=== PATIENT | female | born 1960 | race Caucasian/White ===

== ENCOUNTER 2020-07-10 00:53 | Outpatient (CLI) | payer BC, SELFPAY ==
--- NOTE | 2020-07-10 | DI.MAMMO_ITS ---
EXAM: MAMMO SCREENING CLINICAL HISTORY: SCREENING, Z12.31 TECHNIQUE: Bilateral full field digital CC and MLO mammographic images were obtained with 3D tomosyn thesis and utilizing computer aided detection (CAD). COMPARISON: Available for comparison. FINDINGS: Masses/Architectural Distortion: The asymmetric densities in the central and medial right breast on t he craniocaudad view appears stable. There is an asymmetric density in the medial left breast on the CC view which is more prominent compared to the prior examination. Microcalcifications: No suspicious pleomorphic-type are seen. Skin Thickening/Nipple Retraction: None. IMPRESSION: 1. Asymmetric density in the medial aspect of the left breast on the CC view. 2. Additional views of the left breast are requested for further evaluation. Ultrasound may be indic ated at that time. BI-RADS Category 0 - Assessment Incomplete: Need additional imaging evaluation Breast Density - Category C - Heterogeneously dense Breast density category C or D implies that the patient has dense breast tissue. Dense breast tissue is very common and is not abnormal but dense breast tissue can make it harder to find cancer on a ma mmogram. Also, dense breast tissue may increase their breast cancer risk. This information about the result of the mammogram report was provided to the patient to raise their awareness. Use this report when you speak with the patient about their risks for breast cancer, which includes their family hist ory. At that time, you may recommend for more screening tests (Ultrasound or MRI) as they might be us eful based on their risk. A negative radiographic report should not delay biopsy if a dominant or clinically suspicious mass is present. Up to ten percent of cancers are not identified on mammography. A negative report may reinforce clinical impression. Adenosis and dense breasts may obscure an underlying neoplasm. False positive reports average 6 to 10%. Patient will receive a letter notifying them of these results.
== END 2020-07-10 01:13 ==
PROVIDERS: PCP Nurse Practitioner Family; Visit Provider Nurse Practitioner Family
DX: Z12.31 Encounter for screening mammogram for malignant neoplasm of breast (principal); R92.8 Other abnormal and inconclusive findings on diagnostic imaging of breast
CPT/HCPCS: 77063; 77067

== ENCOUNTER 2020-07-20 02:34 | Outpatient (CLI) | payer BC, SELFPAY ==
--- NOTE | 2020-07-20 | DI.US_ITS ---
EXAM: US BREAST LT LIMITED CLINICAL HISTORY: F/U MAMMO, ASYMMETRIC DENSITIES LT BREAST MORE PROMINENT. TECHNIQUE: Limited ultrasound of the left breast was performed. COMPARISON: Prior mammogram performed 07/10/2020 was reviewed FINDINGS: No evidence of solid or significant cystic lesion in the area of concern in the left breast. IMPRESSION: Negative left breast ultrasound. Appropriate follow-up is to keep this patient yearly mammogram schedule, with earlier imaging if a se lf detected breast change is noted. BI-RADS Category 2 - Benign Findings Breast Density - Category B - Scattered areas of fibroglandular density Breast density Category C or D implies that the patient has dense breast tissue. Dense breast tissue can make it harder to find cancer on a mammogram. Dense breast tissue is also associated with an incr eased risk of breast cancer. This information about the result of the mammogram report was provided to the patient to raise their awareness. Use this report when you speak with the patient about their risks for breast cancer, which includes their family history. At that time, you may recommend additional screening tests (Ultrasoun d or MRI) as these tests may add significant information. A negative radiographic report should not delay biopsy if a dominant or clinically suspicious mass is present. Up to ten percent of cancers are not identified on mammography. A negative report may reinforce clinical impression. Adenosis and dense breasts may obscure an underlying neoplasm. False positive reports average 6 to 10%. Patient will receive a letter notifying them of these results.
--- NOTE | 2020-07-20 14:22 | DI.MAMMO_ITS ---
EXAM: MG MAMMO SCREEN CALL BACK UNI CLINICAL HISTORY: F/U MAMMO, ASYMMETRIC DENSITY LT BREAST MORE PROMINENT. TECHNIQUE: Spot compression 3D view CC area of concern left breath COMPARISON: Prior mammograms were reviewed, most recent being 07/10/2020 FINDINGS: The additional of mammographic view renders this area less concerning. Please note that left breast ultrasound performed today following this mammogram was also negative. IMPRESSION: No radiographic evidence of malignancy in left breast. Left breast ultrasound also negative. See separate ultrasound report BI-RADS Category 2 - Benign Findings Breast Density - Category B - Scattered areas of fibroglandular density Breast density Category C or D implies that the patient has dense breast tissue. Dense breast tissue can make it harder to find cancer on a mammogram. Dense breast tissue is also associated with an incr eased risk of breast cancer. This information about the result of the mammogram report was provided to the patient to raise their awareness. Use this report when you speak with the patient about their risks for breast cancer, which includes their family history. At that time, you may recommend additional screening tests (Ultrasoun d or MRI) as these tests may add significant information. A negative radiographic report should not delay biopsy if a dominant or clinically suspicious mass is present. Up to ten percent of cancers are not identified on mammography. A negative report may reinforce clinical impression. Adenosis and dense breasts may obscure an underlying neoplasm. False positive reports average 6 to 10%. Patient will receive a letter notifying them of these results.
== END 2020-07-20 02:54 ==
PROVIDERS: PCP Nurse Practitioner Family; Visit Provider Nurse Practitioner Family
DX: R92.8 Other abnormal and inconclusive findings on diagnostic imaging of breast (principal)
CPT/HCPCS: 76642; 77063; 77067

== ENCOUNTER 2020-09-05 12:49 | Outpatient (REF) | payer BC, SELFPAY ==
--- NOTE | 2020-09-05 12:00 | PAPFT_PTH ---
PATIENT: Danielle Coronado LOC: [facility] U#:[id number] AGE/SX: 59/F ROOM: RE09/05/[address]: Citlali Calles : 1960 BED: DIS: 09/05/2020 SPEC #: [id number] RECD: 09/06/20 12:43 STATUS: CECILIA REAnni #: [id number] RADHA: 09/05/20 12:[address]: Citlali Calles DEPT: [facility], [facility] Cytology RECD BY: Lanette Briggs Tissues: 1 - CX/ENDOCX FOR PAP SMEARS Procedures: PAP THIN PREP/UVM Screening Comments: [id number]
== END 2020-09-05 12:50 | disposition home or self-care (01) ==
LOC: NCHCN 12:49
PROVIDERS: PCP Nurse Practitioner Family; Visit Provider Nurse Practitioner Family
DX: Z12.4 Encounter for screening for malignant neoplasm of cervix (principal); Z00.00 Encounter for general adult medical examination without abnormal findings; Z01.419 Encounter for gynecological examination (general) (routine) without abnormal findings
CPT/HCPCS: 88142

== ENCOUNTER 2021-04-16 03:25 | Outpatient (CLI) | payer BC, SELFPAY ==
[2021-04-16 11:32] LABS: Source Nasal/Nares
[2021-04-16 13:46] LABS: COVID-19 PCR Negative (Negative)
== END 2021-04-16 03:26 | disposition home or self-care (01) ==
LOC: LBO 03:25
PROVIDERS: PCP Nurse Practitioner Family; Visit Provider Podiatrist
DX: Z20.822 Contact with and (suspected) exposure to COVID-19 (principal); Z01.818 Encounter for other preprocedural examination
CPT/HCPCS: 87635

== ENCOUNTER 2021-04-19 07:55 | Day surgery (SDC) | payer BC, SELFPAY ==
--- NOTE | 2021-04-19 07:07 | W.PM.HP.N ---
Date of service: 04/19/21 Time of Service: 07:07 History of Present Illness History of Present Illness Chief Complaint: Painful left hallux limitus and second digit hammertoe deformities Narrative: 60-year-old female with increasing pain associated with derangement of the left first MPJ with advanced degenerative arthrosis of the joint and contracture of the left second toe. These deformities are causing difficulty in shoe gear pain with ambulation and have been progressing. Nonoperative treatments including alternate shoe gear have failed to provide sufficient relief of symptoms. She is opting for a surgical solution to this debilitating problem. [facility] Medical History Depression Finger pain, left IBS (irritable bowel syndrome) Vaginal dryness Social History Smoking/Tobacco Use Status: Never Smoking risk assessment performed?: Yes Alcohol Intake: current Alcohol Intake frequency: 0-2 drinks per day Alcohol type: wine Drug use: Never Substance use type: does not use Do you feel safe at home: Yes Do you feel safe in your relationship?: Yes Meds Allergies and Home Medications Allergies Allergy/AdvReac Type Severity Reaction Status Date / Time Sulfa (Sulfonamide Allergy Severe Other (See Unverified 04/17/21 12:37 Antibiotics) Comment) Home Medications Medication Instructions Recorded Confirmed Type Unknown [No Known Home Meds] 04/17/21 04/17/21 History Exam Narrative Exam Narrative: 60-year-old female, pleasant with painful left first MPJ and second digit hammertoe. Head is normocephalic Eyes PERRLA Hearing is adequate Uvula looks midline airway looks assessable Heart had regular rate and rhythm I detected no gallops rubs or murmurs Lung begum are clear Abdomen was soft, bowel sounds appreciated, nontender Peripheral pulses easily palpable at the ankle 2/4 no edema Muscle groups are 5 out of 5 bilaterally Skeletal exam is remarkable for crepitance of the first MPJ with range of motion. Periarticular exostoses are noted. Pain is easily palpable around the joint with gentle palpation. Semiflexible left second hammertoe is appreciated with irritation noted over the PIPJ. Neurologically she appears grossly intact Impressions: Advanced degenerative arthrosis, hallux limitus, first MPJ left foot Hammertoe deformity left second digit Plan: Lynn is being brought to the OR for surgical repair of the left first MPJ via joint resectional arthroplasty and an arthroplasty of the left second toe. Potential risk and complications of surgery were discussed including the potential for pain, scarring, infection, nerve injury, shortening of the digit, floating of the digit, the potential need for revisional procedures if postoperative pain persists. All questions have been answered in detail. Informed consent has been obtained.
[2021-04-19 08:05] VITALS: BP 139/77; PULSE 65; RESP 16; TEMP 36.2; O2SAT 98
[2021-04-19] MEDS: Lactated Ringers 1,000 ML 80 ML IV (08:40)
--- NOTE | 2021-04-19 09:58 | W.ANESPRE ---
General Info Date of Service Date Performed: 04/19/21 Height: 5 ft 2 in Weight: 59.2 kg Body Mass Index (BMI): 23.8 Surgical Procedure: Operation Date: 04/19/21 10:10 Proposed Procedures Side Surgeon p Bunionectomy LT FOOT Left Oracio Young DPM Meds Allergies and Home Medications Allergies Allergy/AdvReac Type Severity Reaction Status Date / Time Sulfa (Sulfonamide Allergy Severe Other (See Unverified 04/17/21 12:37 Antibiotics) Comment) Home Medication Medication Instructions Recorded paroxetine HCl 20 mg PO DAILY 04/19/21 Current Visit Medications: Current Medications Generic Name Dose Route Start Last Admin Trade Name Freq PRN Reason Stop Dose Admin Sodium Chloride 500 mls @ 0 mls/hr 04/19/21 06:00 Saline 500ml Bag IV PRN PRN As Directed Cefazolin Sodium/Dextrose 1 gm in 50 mls @ 100 mls/hr 04/19/21 06:00 Ancef Duplex IVPB PREOP MAURICE Ringer's Solution 1,000 mls @ 80 mls/hr 04/19/21 06:00 04/19/21 08:40 IV 05/18/21 23:59 80 mls/hr INFUSION MAURICE Administration IV Miscellaneous Supplies 1 each 04/19/21 06:00 Iv Access IV DIRECTED MAURICE IV Miscellaneous Supplies 1 each 04/19/21 06:00 Iv Access IV 05/18/21 23:59 DIRECTED MAURICE Povidone Iodine 0 ml 04/19/21 06:00 Povidone-Iodine Soln. 118 Ml Btl TP DIRECTED MAURICE Sodium Chloride 0 ml 04/19/21 06:00 Normal Saline Flush 10 Ml Syr IVP PRN PRN Sodium Chloride 0 ml 04/19/21 06:00 Normal Saline Flush 10 Ml Syr IV 05/18/21 23:59 PRN PRN Sodium Chloride 0 ml 04/19/21 06:00 Normal Saline 10 Ml Vial IJ 05/18/21 23:59 DIRECTED PRN Sterile Water 0 ml 04/19/21 06:00 Water,Injection,Sterile 10 Ml Vial IJ 05/18/21 23:59 DIRECTED PRN PFSH Medical History Medical History Depression Finger pain, left IBS (irritable bowel syndrome) Vaginal dryness Tobacco Smoking/Tobacco Use Status: Never Alcohol Alcohol Intake: current Alcohol intake frequency: 0-2 drinks per day Alcohol type: wine Substance Use Substance use: Never Substance use type: does not use Vital Signs and Lab Results Vital Signs Most Recent Vital Signs in EMR: Most Recent Vital Signs Temp Pulse Resp BP Pulse Ox 36.2 C L 65 16 139/77 98 04/19/21 08:05 04/19/21 08:05 04/19/21 08:05 04/19/21 08:05 04/19/21 08:05 Lab Results Blood Type / Crossmatch: No Data to Display Complete Blood Count: No Data to Display Complete Metabolic Panel: No Data to Display Liver Function Panel: No Data to Display Coagulation Panel: No Data to Display Cardiac Panel: No Data to Display Arterial Blood Gas: No Data to Display Venous Blood Gas: No Data to Display Pancreas Panel: No Data to Display Thyroid Panel: No Data to Display Infectious Disease: Coronavirus (COVID-19)(PCR) Negative (Negative) 04/16/21 10:10 04/16/21 Coronavirus 2019 Source Nasal/Nares 04/16/21 10:10 04/16/21 Blood Cultures: No Data to Display Toxicology Panel: No Data to Display Anesthesia Assessment and Plan Anesthesia History Personal History: No History of Anesthesia Complications Family History: No Family History of Anesthesia Complications Exercise Tolerance Exercise Tolerance: Metabolic Equivalents>4 Pertinent Negatives Pertinent Negatives: No Symptoms of GERD, No Major Cardiovascular Symptoms or Complaints, No Major Pulmonary Symptoms or Complaints and No History of CVA/TIA Cardiac & Pulmonary Exam Cardiac Exam: Normal S1/S2 Heart Sounds Pulmonary Exam: Clear Bilateral Breath Sounds Airway Exam Known Difficult Airway: No Mallampati Class: 2 Mouth Opening: Normal (> 3cm) Thyromental Distance: Greater than 3 cm Neck Range of Motion: Full ROM Neck Circumference: Normal Teeth Condition: Normal Dentition Airway Comments: Bottom back chipped tooth #21 chipped ASA Classification ASA Score: ASA 2 Emergency Case?: No NPO Status NPO Status: NPO Clears >2 hours, Solids >8 hours Anesthesia Plan Resuscitation Status: Full Code Anesthesia Technique: General Anesthesia Airway Planned: Natural Airway Monitors Used: Standard Monitors
[2021-04-19 10:00] VITALS: BMI 23.8
[2021-04-19] MEDS: ceFAZolin 1 GM/50 ML BAG IVPB (10:23)
[2021-04-19] MEDS: Bupivacaine 0.5% Pres-Free 30 ML VIAL (10:33)
[2021-04-19] MEDS: Lidocaine 1% Multi-Dose 50 ML VIAL (10:33)
[2021-04-19] MEDS: Dexamethasone 4 MG/ML VIAL (11:28)
--- NOTE | 2021-04-19 11:53 | W.PM.DSUDISC ---
Discharge Plan Disposition Patient Disposition: HOME Condition: Good Discharge Details Reason For Visit: Bunionectomy, arthroplasty second toe left foot Attending Provider: Oracio Young Primary Care Provider: Citlali Calles Home Meds and New Rx's Prescriptions: New ibuprofen 600 mg tablet 600 mg PO Q6H PRN (Reason: pain and inflammation) Qty: 60 RF: 0 oxycodone-acetaminophen 5-325 mg tablet 1 tab PO Q6H PRN (Reason: pain) Qty: 9 RF: 0 Continued paroxetine HCl 20 mg Tablet 20 mg PO DAILY RF: 0 Discharge Instructions Activity:: Elevate Remove Dressings/Wound Care:: Do Not Remove Shower/Bathe:: Cover Diet:: Normal Diet Discharge Orders Discharge Orders: Discharge Order (Routine); Ordered 04/19/21 Ordered By: Oracio Young DS: Diagnosis Discharge Diagnosis (1) Hallux limitus of left foot: Status: Acute
[2021-04-19 11:55] VITALS: BP 126/96; PULSE 66; RESP 16; TEMP 36; O2SAT 94
--- NOTE | 2021-04-19 11:57 | ROE_ITS ---
Date of service: 04/19/21 Time of Service: 11:57 Operative Note Operative Note DATE OF PROCEDURE: 04/19/21 PRE-OP DIAGNOSIS: End-stage arthrosis first MPJ left foot, hammertoe second digit POST-OP DIAGNOSIS: same PROCEDURE: Conde type bunionectomy with 0.062 K wire fixation; arthroplasty PIPJ second digit with 0.045 K wire SURGEON: Oracio Young ANESTHESIA TYPE: General:No Airway Refer to Anesthesia Record ESTIMATED BLOOD LOSS: 0 PATHOLOGY: none sent TOURNIQUET TIME: 59 COMPLICATIONS: None Patient was transported to: same day Patient's condition: stable Indications: 60-year-old female with increasing pain associated with end-stage degenerative arthritis with hallux limitus affecting the left great toe and contracture of the second digit resulting in hammertoe deformity. Pain is experienced in shoe gear and interferes with daily ambulation. Nonoperative treatments have failed to provide significant relief of symptoms. Risk and complications of surgery have been disclosed including the potential for pain, scarring, infection, wound dehiscence, shortening and floating of the first and second toes, ongoing discomfort potentially requiring revisional procedures. No promises have been made to the final outcome of surgery. Informed consent has been obtained. Procedure Description: Danielle was brought to the operative suite placed in the supine position with the left foot was prepped and draped in the usual sterile podiatric fashion. Timeout was performed for safe surgery. Anesthesia being achieved the left foot was exsanguinated well-padded ankle tourniquet inflated 250 mmHg. Attention was directed to the first MPJ where a 5 cm dorsal incision was made medial and parallel to the EHL tendon. Incision was deepened in controlled depth fashion hemostasis being acquired by electrocautery. Dissection was carried down to the joint capsule. A midline longitudinal incision was made over the first MPJ. The capsule was retracted medially and laterally. It was immediately evident that the joint was in it end-stage of breakdown. There was complete loss of articular cartilage with flattening, squaring of the joint surfaces and complete erosion of the articular cartilage through the joint surface. With power instrumentation approximately 1 cm of bone was resected from the base of the proximal phalanx. The medial lateral and dorsal exostosis from the first metatarsal head was then resected with power instrumentation. All rough and bony edges were rasped smooth. Excellent resection of bone was identified and the hallux was sitting in a rectus position. Fixation was achieved through retrograde fashion with a 0.062 K wire. The joint capsule was repaired after copious irrigation with simple interrupted suture 3-0 Vicryl. The subcutaneous layer was brought together with simple interrupted suture of 4-0 Vicryl. The skin was then coapted with continuous running suture of 4-0 Monocryl. Mastisol and half-inch Steri-Strips were then applied after the second toe was repaired. Attention was now directed to the second toe with 2 converging semielliptical incisions were placed over the PIPJ. Skin wedge was removed. A transverse tenotomy capsulotomy was performed at the PIPJ level with a #15 scalpel and the medial lateral collaterals were released. The head of the proximal phalanx was inspected and there were 2 areas of through and through erosion along the plantar central and plantar medial aspect of the joint surface. With double- action bone cutting forceps the head of the proximal phalanx was resected at its surgical neck. All rough and bony edges were rasped smooth. The second toe was sitting in a rectus position. Fixation was achieved with a 0.045 K wire in retrograde fashion. The extensor tendon was shortened slightly and repaired end-to-end with simple interrupted suture 3-0 Vicryl. The skin was then closed with simple interrupted suture of 4-0 nylon. 4 mg of dexamethasone phosphate was infused deeply into the first MPJ wound. Xeroform gauze fluff compression dressings were applied. Tourniquet was r eleased 59 minutes with vascularity returning immediately to all toes. Sharp and sponge counts were correct. Danielle left the OR with vital signs stable vascular status intact she will be followed by myself in the office next week. Dictated with Sherron naturally speaking. Document not reviewed for accuracy.
--- NOTE | 2021-04-19 12:04 | W.ANESPOSTOP ---
Postoperative Evaluation Date, Time and Location Date Performed: 04/19/21 Time Performed: 12:04 Patient Location: Day Surgery Unit Vital Signs Most Recent Imported Vital Signs: Most Recent Vital Signs Temp Pulse Resp BP Pulse Ox 36.2 C L 65 16 139/77 98 04/19/21 08:05 04/19/21 08:05 04/19/21 08:05 04/19/21 08:05 04/19/21 08:05 Most Recent Manually Entered Vital Signs: Adult Blood Pressure: 120/96 Heart Rate: 66 Respirations: 16 Oxygen Saturation (%): 94 Temperature (C): 36.3 C Pain Score (0-10 Scale): 0 Assessment Mental Status: Awake (Alert & Oriented to Patient Baseline) Airway and Respiratory Function: Patent airway with normal (patient baseline) respiratory exam Cardiovascular Function: Hemodynamically Stable Hydration Status: Adequately Hydrated Nausea & Vomiting: No Nausea or Vomiting Pain: Pt. Denies Any Pain Peripheral Nerve Block: Patient did not receive a nerve block
[2021-04-19 12:05] VITALS: BP 120/96; PULSE 66; RESP 16; TEMPC 36.3; O2SAT 94
[2021-04-19 12:20] VITALS: BP 130/86; PULSE 58; RESP 16; TEMP 36.3; O2SAT 95
== END 2021-04-19 13:05 | disposition home or self-care (01) ==
PROVIDERS: PCP Nurse Practitioner Family; Visit Provider Podiatrist
PROC: (CPT 28292; principal; 2021-04-19 10:00)
DX: M19.072 Primary osteoarthritis, left ankle and foot (principal); M20.5X2 Other deformities of toe(s) (acquired), left foot; M20.42 Other hammer toe(s) (acquired), left foot
CPT/HCPCS: 28292; 28285; J0131; J0690; J1100; J1885; J2001; J2250; J2405

== ENCOUNTER 2021-07-03 01:10 | Outpatient (CLI) | payer BC, SELFPAY ==
--- NOTE | 2021-07-03 | DI.MRI_ITS ---
Exam(s) MR CERVICAL SPINE WO EXAM: MR CERVICAL SPINE WO CLINICAL HISTORY: CERVICAL DISC DISORDER WITH RADICULOPATHY, PAIN,M50.12 TECHNIQUE: Multiplanar multisequence MRI of the cervical spine was performed without intravenous con trast. COMPARISON: No plain films of the cervical spine available time this MRI interpretation. FINDINGS: CERVICOMEDULLARY JUNCTION: Intact with no evidence of cerebellar tonsillar ectopia. No obvious abnor mality of the odontoid process. No evidence of Chiari 1 malformation. CERVICAL SPINAL CORD: There is no abnormal signal in the cervical spinal cord and no evidence of foca l cord atrophy nor focal cord swelling. OSSEOUS:There are no cervical fractures evident. No significant osseous lesions in the cervical vert ebrae. However, there is abnormal straightening the cervical curvature. INDIVIDUAL LEVELS: C2-3: No disc herniation nor central canal stenosis. No foraminal stenosis. No facet arthropathy. C3-4: Moderate disc space narrowing. There is relatively symmetrical annular bulging. No significan t spinal canal stenosis. Mild bilateral facet arthropathy. Noprominent foraminal stenosis. C4-5: Moderate disc space narrowing. Some disc bulging which is more prominent on the right side whe re there is a disc-osteophyte complex. Central canal dimensions are lower normal.There is mild facet arthropathy on the right side. No significant foraminal stenosis on the right. On the left side th ere is more severe facet arthropathy and an element of mild left-sided foraminal stenosis is evident. C5-6: This level exhibits advanced chronic disc space narrowing and anterior osteophytes. Posteriorl y there are bilateral disc-osteophyte complexes. There is also a central posterior disc herniation s uperimposed upon annular bulging, this compressing the cervical cord and the AP dimension measurement of the canal at this level is 6 millimeters. There are mild degenerative changes in the facet joint s. Mild bilateral foraminal stenosis. C6-7: This level also exhibits advanced chronic disc space narrowing. Annular bulging centrally and right side with compression of the spinal cord and AP canal measurement also 6 millimeters (central c anal stenosis). Mild-moderate bilateral facet arthropathy. Mild bilateral foraminal stenosis. C7-T1: No disc herniation nor central canal stenosis. Moderate facet degenerative changes.No foramina l stenosis. IMPRESSION: 1. Multilevel findings as described individually above, with most significant findings being at C5-6 and C6-7 levels where there is also significant spinal canal stenosis. There is no abnormal spinal c ord signal at these levels. 2. Multilevel asymmetric facet arthropathy. Mild multilevel asymmetric foraminal stenosis. 3. There is abnormal straightening of the cervical curvature, most probably related to chronic muscle spasm. DATA REPOSITORY:
== END 2021-07-03 01:30 ==
PROVIDERS: PCP Nurse Practitioner Family; Visit Provider Chiropractor
DX: M50.122 Cervical disc disorder at C5-C6 level with radiculopathy; M50.123 Cervical disc disorder at C6-C7 level with radiculopathy; M48.02 Spinal stenosis, cervical region; R93.7 Abnormal findings on diagnostic imaging of other parts of musculoskeletal system
CPT/HCPCS: 72141

== ENCOUNTER 2021-09-10 20:39 | Outpatient (REF) | payer BC, SELFPAY ==
[2021-09-10 21:02] LABS: ALT 22 U/L (14-59); AST 24 U/L (15-37); Albumin 4.1 g/dL (3.4-5.0); Alkaline Phosphatase 121 U/L (46-116); Anion Gap 6.5 mmol/L (3-11); BUN 18 mg/dL (7-18); Bilirubin, Total 0.3 mg/dL (0.2-1.0); CO2 30.5 mmol/L (21.0-32.0); CREATININE 0.8 mg/dL (0.55-1.02); Chloride 101 mmol/L (98-107); Glucose 88 mg/dL (74-106); Potassium 3.9 mmol/L (3.5-5.1); Sodium 138 mmol/L (136-145); Total Protein 7.4 g/dL (6.4-8.2)
[2021-09-10 21:05] LABS: HCT 42.5 % (36.0-46.0); HGB 13.5 g/dL (11.2-15.7); MCH 30.6 pg (27.0-33.0); MCHC 31.8 % (32.0-36.0); MCV 96.4 fL (80-95); MPV 10.4 fL (8.0-11.0); Platelet Count 286 10^3/uL (130-400); RBC 4.41 10^6/uL (3.93-5.22); RDW 12.5 % (11.7-14.6); RDW-SD 44.8 fL; WBC 5.89 10^3/uL (4.4-10.8)
== END 2021-09-10 20:40 | disposition home or self-care (01) ==
LOC: NCHCN 20:39
PROVIDERS: PCP Nurse Practitioner Family; Visit Provider Nurse Practitioner Family
DX: Z00.00 Encounter for general adult medical examination without abnormal findings (principal)
CPT/HCPCS: 80053; 85027

== ENCOUNTER 2021-10-30 00:12 | Outpatient (CLI) | payer BC, SELFPAY ==
--- NOTE | 2021-10-30 | DI.MAMMO_ITS ---
Exam(s) MAMMO SCREENING EXAM: MAMMO SCREENING CLINICAL HISTORY: SCREENING FOR BREAST CANCER Z12.39 TECHNIQUE: Mammograms were interpreted according to the usual protocol including computer analysis w [employer] CAD system, tomosynthesis and C-view imaging. COMPARISON: 2018 through 2020 FINDINGS: The breasts are composed of scattered fibroglandular densities, Breast Density category B. No suspicious masses or suspicious microcalcifications are seen. No skin thickening or abnormal axillary lymph nodes are seen. There has been no significant change from prior exams. IMPRESSION: BI-RADS Category 1, Negative mammogram Yearly screening mammography is recommended. Breast Density - Category B, scattered fibroglandular densities. A negative radiographic report should not delay biopsy if a dominant or clinically suspicious mass is present. Up to ten percent of cancers are not identified on mammography. A negative report may reinforce clinical impression. Adenosis and dense breasts may obscure an underlying neoplasm. False positive reports average 6 to 10%. Patient will receive a letter notifying them of these results.
== END 2021-10-30 00:32 ==
PROVIDERS: PCP Nurse Practitioner Family; Visit Provider Nurse Practitioner Family
DX: Z12.31 Encounter for screening mammogram for malignant neoplasm of breast (principal)
CPT/HCPCS: 77063; 77067

== ENCOUNTER 2022-10-30 14:41 | Outpatient (REF) | payer BC, SELFPAY ==
[2022-10-30 14:57] LABS: HCT 40.6 % (36.0-46.0); HGB 13.3 g/dL (11.2-15.7); MCH 30.6 pg (27.0-33.0); MCHC 32.8 % (32.0-36.0); MCV 93 fL (80-95); MPV 10.6 fL (8.0-11.0); Platelet Count 266 10^3/uL (130-400); RBC 4.35 10^6/uL (3.93-5.22); RDW 12.5 % (11.7-14.6); RDW-SD 43.7 fL; WBC 4.99 10^3/uL (4.4-10.8)
[2022-10-30 15:22] LABS: ALT 26 U/L (14-59); AST 24 U/L (15-37); Alkaline Phosphatase 104 U/L (46-116); Anion Gap 3.6 mmol/L (3-11); BUN 17 mg/dL (7-18); Bilirubin, Total 0.4 mg/dL (0.2-1.0); CO2 30.4 mmol/L (21.0-32.0); CREATININE 0.9 mg/dL (0.55-1.02); Calcium 9.4 mg/dL (8.5-10.1); Chloride 105 mmol/L (98-107); Estimated GFR 71.83 (mL/min/1.73m2); Glucose 77 mg/dL (74-106); Potassium 5.4 mmol/L (3.5-5.1); Sodium 139 mmol/L (136-145); Total Protein 7.3 g/dL (6.4-8.2)
== END 2022-10-30 14:42 | disposition home or self-care (01) ==
LOC: NCHCN 14:41
PROVIDERS: PCP Nurse Practitioner Family; Visit Provider Nurse Practitioner Family
DX: Z00.00 Encounter for general adult medical examination without abnormal findings (principal); Z13.0 Encounter for screening for diseases of the blood and blood-forming organs and certain disorders involving the immune mechanism; Z13.228 Encounter for screening for other metabolic disorders
CPT/HCPCS: 80053; 85027

== ENCOUNTER 2022-12-15 02:10 | Outpatient (CLI) | payer BC, SELFPAY ==
--- NOTE | 2022-12-15 | DI.MRI_ITS ---
Exam(s) MR CERVICAL SPINE WO EXAM: MR CERVICAL SPINE WO CLINICAL HISTORY: PROGRESSIVE RADICULAR ARM PAIN L > R, SURGICAL PLANNING, SPONDYLOSIS, M47.8 TECHNIQUE: Multiplanar multisequence MRI of the cervical spine was performed without intravenous con trast. COMPARISON: MR MR CERVICAL SPINE WO from 07/03/2021 FINDINGS: BONES: Vertebral body heights are maintained. There is disc space narrowing at C5-6 and C6-C7. There is straightening of the normal cervical lordosis. Mild degenerative endplate signal changes are seen particularly at C6-C7. CERVICAL CORD: Craniovertebral junction is unremarkable. There is normal signal in the spinal cord. There is some flattening of the spinal cord at the C5-6 and C6-C7 levels. This is due to the degener ative changes at this level. SOFT TISSUES: Unremarkable. C2-3: No disc herniation or bulge is identified. No significant central spinal canal or neural forami nal stenosis. C3-4: No disc herniation or bulge is identified. There are hypertrophic changes of the left facets. C4-5: There is prominence of the osteophyte disc complex without significant central spinal canal es nosis. There is mild prominence of the left facets. There is mild right and moderate left neural fo raminal stenosis. C5-6: There is prominence of the osteophyte disc complex flattening the anterior aspect of the spinal cord causing central spinal canal stenosis. There is wqkb-lh-sruhijli right and ddzx-wl-dleujknd le ft neural foraminal stenosis. C6-7: There is prominence of the osteophyte disc complex compressing the anterior aspect of the spina l cord. The AP diameter of the spinal canal is 6.7 mm. There is central spinal canal stenosis. The re is moderate right and pjdt-fc-xarcffwq left neural foraminal stenosis. C7-T1: No disc herniation or bulge is identified. No significant central spinal canal or neural aure inal stenosis IMPRESSION: Multilevel degenerative changes in the cervical spine resulting in central spinal canal and neural fo raminal stenosis. The findings are most marked at the C5-6 and C6-C7 levels as described above. DATA REPOSITORY:
== END 2022-12-15 02:30 ==
LOC: DI 02:11
PROVIDERS: PCP Nurse Practitioner Family; Visit Provider Physician Assistant Medical
DX: M47.812 Spondylosis without myelopathy or radiculopathy, cervical region
CPT/HCPCS: 72141

== ENCOUNTER 2022-12-16 00:46 | Outpatient (CLI) | payer BC, SELFPAY ==
--- NOTE | 2022-12-16 12:45 | DI.MAMMO_ITS ---
Exam(s) MAMMO SCREENING EXAM: MAMMO SCREENING CLINICAL HISTORY: SCREENING, Z12.39 TECHNIQUE: Mammograms were interpreted according to the usual protocol including computer analysis w [employer] CAD system, tomosynthesis and C-view imaging. COMPARISON: 2018 through 2021 FINDINGS: The breasts are composed of scattered fibroglandular densities, Breast Density category B. No suspicious masses or suspicious microcalcifications are seen. No skin thickening or abnormal axillary lymph nodes are seen. There has been no significant change from prior exams. IMPRESSION: BI-RADS Category 1, Negative mammogram Yearly screening mammography is recommended. Breast Density - Category B, scattered fibroglandular densities. A negative radiographic report should not delay biopsy if a dominant or clinically suspicious mass is present. Up to ten percent of cancers are not identified on mammography. A negative report may reinforce clinical impression. Adenosis and dense breasts may obscure an underlying neoplasm. False positive reports average 6 to 10%. Patient will receive a letter notifying them of these results.
== END 2022-12-16 01:06 ==
PROVIDERS: PCP Nurse Practitioner Family; Visit Provider Nurse Practitioner Family
DX: Z12.31 Encounter for screening mammogram for malignant neoplasm of breast (principal); R92.8 Other abnormal and inconclusive findings on diagnostic imaging of breast
CPT/HCPCS: 77063; 77067

== ENCOUNTER 2023-01-23 12:55 | Outpatient (REF) | payer BC, SELFPAY ==
[2023-01-23 14:50] LABS: HCT 37.8 % (36.0-46.0); HGB 12.5 g/dL (11.2-15.7); MCH 30.8 pg (27.0-33.0); MCHC 33.1 % (32.0-36.0); MCV 93 fL (80-95); Platelet Count 269 10^3/uL (130-400); RBC 4.06 10^6/uL (3.93-5.22); RDW 12.5 % (11.7-14.6); WBC 4.29 10^3/uL (4.4-10.8)
[2023-01-23 15:18] LABS: ALT 18 U/L (14-59); AST 21 U/L (15-37); Albumin 3.6 g/dL (3.4-5.0); Alkaline Phosphatase 101 U/L (46-116); Anion Gap 3.9 mmol/L (3-11); BUN 12 mg/dL (7-18); Bilirubin, Total 0.4 mg/dL (0.2-1.0); CO2 29.1 mmol/L (21.0-32.0); CREATININE 0.9 mg/dL (0.55-1.02); Calcium 8.8 mg/dL (8.5-10.1); Chloride 101 mmol/L (98-107); Estimated GFR 71.39 (mL/min/1.73m2); Glucose 83 mg/dL (74-106); Sodium 134 mmol/L (136-145); Total Protein 6.6 g/dL (6.4-8.2)
== END 2023-01-23 12:56 | disposition home or self-care (01) ==
LOC: NCHCN 12:55
PROVIDERS: PCP Nurse Practitioner Family; Visit Provider Family Medicine
DX: M47.812 Spondylosis without myelopathy or radiculopathy, cervical region (principal); M48.02 Spinal stenosis, cervical region; Z01.818 Encounter for other preprocedural examination; Z01.812 Encounter for preprocedural laboratory examination
CPT/HCPCS: 80053; 85027

== ENCOUNTER 2023-08-28 20:34 | Outpatient (REF) | payer BC, SELFPAY | END 2023-08-28 20:35 | disposition home or self-care (01) | LOC: NCHCN 20:34 | PROVIDERS: PCP Nurse Practitioner Family; Visit Provider Family Medicine | DX: N39.0 Urinary tract infection, site not specified (principal) | CPT/HCPCS: 87077; 87086; 87186 ==

== ENCOUNTER 2024-01-08 15:09 | Outpatient (REF) | payer MEDICARE, BC, SELFPAY ==
--- NOTE | 2024-01-08 08:00 | PAPFT_PTH ---
PATIENT: Danielle Coronado LOC: [facility]#:[id number] AGE/SX: 63/F ROOM: RE01/08/[address]: Citlali Calles : 1960 BED: DIS: 01/08/2024 SPEC #: [id number] RECD: 01/08/24 17:28 STATUS: CECILIA BRAN #: [id number] RADHA: 01/08/24 08:[address]: Citlali Calles DEPT: [facility] Cytology RECD BY: Lanette Briggs Tissues: 1 - CX/ENDOCX FOR PAP SMEARS Procedures: PAP THIN PREP/[facility] Screening HPV DNA PROBE Comments: [id number] (HPV 16 & 18/45)
[2024-01-08 15:13] LABS: HCT 40.1 % (36.0-46.0); HGB 13.2 g/dL (11.2-15.7); MCH 30.8 pg (27.0-33.0); MCHC 32.9 % (32.0-36.0); MCV 94 fL (80-95); MPV 10.3 fL (8.0-11.0); Platelet Count 261 10^3/uL (130-400); RBC 4.29 10^6/uL (3.93-5.22); RDW 12.6 % (11.7-14.6); RDW-SD 43.8 fL; WBC 4.48 10^3/uL (4.4-10.8)
--- OUTSIDE RECORDS SUMMARY | 2024-01-08 15:15 | XMS_ITS | Encounter Summary ---
Author Organization [facility] [address] Care Team Providers Care Fairground Operator Name Role Phone Unavailable Primary Care Provider Unavailabl e Encounter Details Date Type Department Care Team (Late st Contact Info) Description 07/03/2021 Ancillary Procedure Radiology at [address] [phone] Kelley Khan MD [address] [place] [address] [place] [address] Social History Tobacco Use Types Packs/Day Years Used Date Smoking Tobacco: Never Assessed Sex and Gender Information Value Date Recorded Sex Assigned at Not on file Gender Identity Female 04/28/2023 1:06 PM EST Sexual Orientation Not on file documented as of this encounter Plan of Treatment Not on file documented as of this encounter Procedures Procedure Name Priority Date/Time Associated Diagnosis Comments FILM LIBRARY STORAGE ONLY MR SPINE Routine 07/03/2021 12:00 AM EST documented in this encounter Results * Film Library- Storage Only MR Spine (07/03/2021 12:00 AM EST) Narrative RAD - 08/21/2021 4:02 PM EST This exam is auto-finalizing. It's purpose is for storage only. Kelley Khan MD IMG FILM LIBRARY ORDERABLES [place], [place] documented in this encounter Visit Diagnoses Not on filedocumented in this encounter
--- OUTSIDE RECORDS SUMMARY | 2024-01-08 15:15 | XMS_ITS | Encounter Summary ---
Author Organization [facility] [place] [address] Care Team Providers Care Surgical Scrub Tech Name Role Phone None Primary Care Provider Unavailabl e Encounter Details Date Type Department Care Team (Late st Contact Info) Description 12/15/2022 10:05 PM EDT Ancillary Procedure [address] [phone] Kelley Khan MD [address] [place] [address] Social History Tobacco Use Types Packs/Day Years [...] FILM LIBRARY STORAGE ONLY MR SPINE Routine 12/15/2022 10:03 PM EDT documented in this encounter Results * Film Library- Storage Only MR Spine (12/15/2022 10:03 PM EDT) Narrative RAD - 12/15/2022 10:03 PM EDT This exam is auto-finalizing. It's purpose is for storage only. Kelley Khan MD IMG FILM LIBRARY ORDERABLES [place], [place] documented in this encounter Visit Diagnoses Not on filedocumented in this encounter Care Teams Surgical Scrub Tech Relationship Specialty Start Date End Date None None PCP - General 09/18/21 documented as of this encounter
--- OUTSIDE RECORDS SUMMARY | 2024-01-08 15:15 | XMS_ITS | Encounter Summary ---
[place] [address] Care Team Providers Care Market News Reporter Name Role Phone None Primary Care Provider Unavailabl e Encounter Details Date Type Department Care Team (Latest Contact Info) Description 03/16/2023 Travel Social History Tobacco Use Types Packs/Day Years Used Date Smoking Tobacco: Never Assessed Sex and Gender Information Value Date Recorded Sex Assigned at Not on file Gender Identity Female 04/28/2023 1:06 PM EST Sexual Orientation Not on file documented as of this encounter Plan of Treatment Not on file documented as of this encounter Visit Diagnoses Not on filedocumented in this encounter Care Teams Market News Reporter Relationship Specialty Start Date End Date None None PCP - General 09/18/21 documented as of this encounter
--- OUTSIDE RECORDS SUMMARY | 2024-01-08 15:15 | XMS_ITS | Encounter Summary ---
[place] [address] Care Team Providers Care Truckman Name Role Phone None Primary Care Provider Unavailabl e Encounter Details Date Type Department Care Team (Latest Contact Info) Description 05/05/2023 Travel Social History Tobacco Use Types Packs/Day [...] on filedocumented in this encounter Care Teams Truckman Relationship Specialty Start Date End Date None None PCP - General 09/18/21 documented as of this encounter
--- OUTSIDE RECORDS SUMMARY | 2024-01-08 15:15 | XMS_ITS | Clinical Summary ---
[place] [address] Care Team Providers Care Cycle Consultant Name Role Phone None Primary Care Provider Unavailabl e Social History Tobacco Use Types Packs/Day Years Used Date Smoking Tobacco: Never Assessed Sex and Gender Information Value Date Recorded Sex Assigned at Not on file Gender Identity Female 04/28/2023 1:06 PM EST Sexual Orientation Not on file Plan of Treatment Health Maintenance Due Date Last Done Comments CT Colonography 1960 Colonoscopy 1960 Colorectal Cancer Screening 1960 FIT DNA 1960 FIT 1960 Sigmoidoscopy (10 year) with FIT yearly 1960 Sigmoidoscopy 1960 HIV screen 1976 Hepatitis C Screening 1976 Tdap adult 1977 Tetanus vaccine 1977 HPV test 1988 PAP Smear 1988 Breast Cancer Share Decision Needed 1998 Breast Cancer screening 1998 Zoster vaccine (1 of 2) 2008 Advance Directive 2013 Covid-19 Vaccine ( - 2022-24 season) 2023 Bone Density Scan 11/30/2023 Pneumoccocal Vaccine: 65+ (1 of 1 - PCV) 11/30/2023 Influenza (Flu) vaccine (1 o f 1 - Influenza standard series) 02/21/2024 Care Teams Cycle Consultant Relationship Specialty Start Date End Date None None PCP - General 09/18/21
--- OUTSIDE RECORDS SUMMARY | 2024-01-08 15:15 | XMS_ITS | Encounter Summary ---
Author Organization [facility] [place] [address] Care Team Providers Care Asic Design Engineer Name Role Phone None Primary Care Provider Unavailabl e Encounter Details Date Type Department Care Team (Latest Contact Info) Description 03/16/2023 11:45 AM EDT Ancillary Procedure Radiology [facility] at [facility] at [address] [phone] Henrique Pyle PA [address] [place] [phone] S/P cervical spinal fusion; Cervical myelopathy with cervical radiculopathy Social History Tobacco Use Types Packs/Day Years Used Date Smoking Tobacco: Never Assessed Sex and Gender Information Value Date Recorded Sex Assigned at Not on file Gender Identity Female 04/28/2023 1:06 PM EST Sexual Orientation Not on file documented as of this encounter Plan of Treatment Not on file documented as of this encounter Procedures Procedure Name Priority Date/Time Associated Diagnosis Comments XR CERVICAL SPINE 1 VIEW Routine 03/16/2023 11:21 AM EDT S/P cervical spinal fusion Cervical myelopathy with cervical radiculopathy documented in this encounter Results * XR Cervical Spine 1 View (03/16/2023 11:21 AM EDT) Anatomical Region Laterality Modality C-spine N/A Digital Radiogra phy Impressions 03/16/2023 1:02 PM EDT 1. Status post C5-C6 and C6-C7 ACDF. No hardware complications. 2. Straightening of the cervical spine is consistent with muscular spasm. 3. 2 mm anterolisthesis of C4 on C5. 4. Diffuse degenerative and spondylotic changes are noted in the cervical spine. Thank you for letting us participate in the care of this patient. ??If you are a health care provider and have any questions regarding this report, please contact the number below. ??For patients who have questions please contact the health foster care case manager that requested your imaging first. ? Electronically signed by: Juan Jose Kauffman MD, [facility] ([phone]), at 03/16/2023 1:02 PM Narrative 03/16/2023 1:02 PM EDT EXAMINATION: XR CERVICAL SPINE 1 VIEW CLINICAL HISTORY: LATERAL VIEW, (PO1) 02/12 HBM C5-7 ACDFc TECHNIQUE: 1 views of the cervical spine COMPARISON: None FINDINGS: Status post C5-C6 and C6-C7 ACDF. No hardware complications are noted. Straightening of the cervical spine is consistent with muscular spasm. 2 mm anterolisthesis of C4 on C5 is noted. Diffuse degenerative and spondylotic changes are noted in the cervical spine. Procedure Note Juan Jose Kauffman MD - 03/16/2023 EXAMINATION: XR CERVICAL SPINE 1 VIEW CLINICAL HISTORY: LATERAL VIEW, (PO1) 02/12 HBM C5-7 ACDFc TECHNIQUE: 1 views of the cervical spine COMPARISON: None FINDINGS: Status post C5-C6 and C6-C7 ACDF. No hardware complications are noted. Straightening of the cervical spine is consistent with muscular spasm. 2mm anterolisthesis of C4 on C5 is noted. Diffuse degenerative andspondylotic changes are noted in the cervical spine. IMPRESSION 1. Status post C5-C6 and C6-C7 ACDF. No hardware complications. 2. Straightening of the cervical spine is consistent with muscular spasm. 3. 2 mm anterolisthesis of C4 on C5. 4. Diffuse degenerative and spondylotic changes are noted in the cervicalspine. Thank you for letting us participate in the care of this patient. If youare a health care provider and have any questions regarding this report,please contact the number below. For patients who have questions please contactthe health foster care case manager that requested your imaging first. Electronically signed by: Juan Jose Kauffman MD, [facility]([phone]), at 03/16/2023 1:02 PM Henrique JOHNSON IMG DX ORDERABLES documented in this encounter Visit Diagnoses Diagnosis S/P cervical spinal fusion Arthrodesis status Cervical myelopathy with cervical radiculopathy documented in this encounter Care Teams Asic Design Engineer Relationship Specialty Start Date End Date None None PCP - General 09/18/21 documented as of this encounter
--- OUTSIDE RECORDS SUMMARY | 2024-01-08 15:15 | XMS_ITS | Encounter Summary ---
Author Organization [facility] [place] [address] Care Team Providers Care Support Director Name Role Phone None Primary Care Provider Unavailabl e Encounter Details Date Type Department Care Team (Latest Contact Info) Description 05/05/2023 3:15 PM EST Ancillary Procedure Radiology XRay at [facility] at [address] [phone] Kelley Khan MD [address] [place] [id number] S/P cervical spinal fusion; Cervical myelopathy with [...] Date/Time Associated Diagnosis Comments XR CERVICAL SPINE 2 OR 3 VIEWS Routine 05/05/2023 2:50 PM EST S/P cervical spinal fusion Cervical myelopathy with cervical radiculopathy documented in this encounter Results * XR Cervical Spine 2 or 3 Views (05/05/2023 2:50 PM EST) Anatomical Region Laterality Modality C-spine N/A Digital Radiogra phy Impressions 05/06/2023 8:15 AM EST 1. ??ACDF of C5-C6 and C6-C7 with no hardware complication. 2. ??Grade 1 anterolisthesis C4 on C5 with no instability. Thank you for letting us participate in the care of this patient. ??If you are a health care provider and have any questions regarding this report, please contact the number below. ??For patients who have questions please contact the health childcare aide that requested your imaging first. ? Narrative 05/06/2023 8:15 AM EST EXAMINATION: XR CERVICAL SPINE 2 OR 3 VIEWS CLINICAL HISTORY: FLEXION AND EXTENSION VIEWS, (PO2) 02/12 HBM C5-7 ACDFc TECHNIQUE: 2 views of the cervical spine with flexion-extension. COMPARISON: Cervical spine radiograph 03/16/2023 FINDINGS: Cervical spine from C1-C7 is visualized. Status post ACDF of C5-C6 and C6-C7. The hardware are intact, stable in alignment. No evidence of periprosthetic fracture or loosening. Fracture fragments are stable in alignment. Grade 1 anterolisthesis of C4 on C5 measuring 2 mm on flexion, and reduces completely on extension. No dynamic instability using a threshold of 4 mm as abnormal translation Multilevel degenerative disc disease. The prevertebral and paraspinous soft tissues unremarkable. Procedure Note Saman Lake MD - 05/06/2023 EXAMINATION: XR CERVICAL SPINE 2 OR 3 VIEWS CLINICAL HISTORY: FLEXION AND EXTENSION VIEWS, (PO2) 02/12 HBM C5-7 ACDFc TECHNIQUE: 2 views of the cervical spine with flexion-extension. COMPARISON: Cervical spine radiograph 03/16/2023 FINDINGS: Cervical spine from C1-C7 is visualized. Status post ACDF of C5-C6 and C6-C7. The hardware are intact, stable in alignment. No evidence of periprosthetic fracture or loosening. Fracture fragments are stable in alignment. Grade 1 anterolisthesis of C4 on C5 measuring 2 mm on flexion, andreduces completely on extension. No dynamic instability using a threshold of 4 mmas abnormal translation Multilevel degenerative disc disease. The prevertebral and paraspinoussoft tissues unremarkable. IMPRESSION 1. ACDF of C5-C6 and C6-C7 with no hardware complication. 2. Grade 1 anterolisthesis C4 on C5 with no instability. Thank you for letting us participate in the care of this patient. If youare a health care provider and have any questions regarding this report,please contact the number below. For patients who have questions please contactthe health childcare aide that requested your imaging first. Kelley Khan MD IMG DX ORDERABLES documented in this encounter Visit Diagnoses Diagnosis S/P cervical spinal fusion Arthrodesis status Cervical myelopathy with cervical radiculopathy documented in this encounter Care Teams Support Director Relationship Specialty Start Date End Date None None PCP - General 09/18/21 documented as of this encounter
--- OUTSIDE RECORDS SUMMARY | 2024-01-08 15:15 | XMS_ITS | Encounter Summary ---
[place] [address] Care Team Providers Care Lacquer Dipping Machine Operator Name Role Phone None Primary Care Provider Unavailabl e Encounter Details Date Type Department Care Team (Latest Contact Info) Description 04/28/2023 Travel Social History Tobacco Use Types Packs/Day [...] on filedocumented in this encounter Care Teams Lacquer Dipping Machine Operator Relationship Specialty Start Date End Date None None PCP - General 09/18/21 documented as of this encounter
[2024-01-08 16:21] LABS: ALT 27 U/L (14-59); AST 27 U/L (15-37); Albumin 3.8 g/dL (3.4-5.0); Alkaline Phosphatase 104 U/L (46-116); Anion Gap 8.5 mmol/L (3-11); BUN 11 mg/dL (7-18); Bilirubin, Total 0.37 mg/dL (0.2-1.0); CO2 28.5 mmol/L (21.0-32.0); CREATININE 0.9 mg/dL (0.55-1.02); Calculated LDL 145 mg/dL (<100); Chloride 103 mmol/L (98-107); Cholesterol 265 mg/dL (<200); Estimated GFR 70.95 (mL/min/1.73m2); Glucose 80 mg/dL (74-106); HDL Cholesterol 113 mg/dL (40-60); Potassium 4.7 mmol/L (3.5-5.1); Sodium 140 mmol/L (136-145); Total Protein 7.1 g/dL (6.4-8.2); Triglyceride 36 mg/dL (<150)
== END 2024-01-08 15:10 | disposition home or self-care (01) ==
LOC: NCHCN 15:09
PROVIDERS: PCP Nurse Practitioner Family; Visit Provider Nurse Practitioner Family
DX: Z12.4 Encounter for screening for malignant neoplasm of cervix (principal); Z13.220 Encounter for screening for lipoid disorders; E87.1 Hypo-osmolality and hyponatremia
CPT/HCPCS: 80053; 80061; 85027; 88142; 87624

== ENCOUNTER 2024-02-08 02:21 | Outpatient (CLI) | payer MEDICARE, BC, SELFPAY ==
--- NOTE | 2024-02-08 | DI.RAD_ITS ---
Exam(s) XR CERVICAL SP MOSCOSO TRAUMA 2-3V EXAM: XR CERVICAL SP MSOCOSO TRAUMA 2-3V CLINICAL HISTORY: Cervical myelopathy with radiculopathy, G95.9; s/p cervical spinal fusion,. TECHNIQUE: 2D digital imaging was performed. Two images were obtained. Lateral flexion and extension views were obtained . COMPARISON: MR MR CERVICAL SPINE WO from 12/15/2022 FINDINGS: There is disc fusion at C5-6 and C6-C7. There is no significant subluxation with flexion or extension . There is mild disc space narrowing at C4-C5. Small osteophytes are seen at C3-C4 and C4-C5. There are degenerative changes of the facets at multiple levels of the cervical spine. The prevertebral so ft tissues are unremarkable. IMPRESSION: 1. Disc fusion at C5-6 and C6-C7. 2. No significant subluxation with flexion or extension. 3. Degenerative changes seen in the cervical spine. DATA REPOSITORY: RADIATION DOSE DELIVERED:
== END 2024-02-08 02:41 ==
LOC: DI 02:21
PROVIDERS: PCP Nurse Practitioner Family; Visit Provider Neurological Surgery
DX: M43.22 Fusion of spine, cervical region (principal)
CPT/HCPCS: 72040

== ENCOUNTER 2024-02-18 02:00 | Outpatient (CLI) | payer MEDICARE, BC, SELFPAY ==
--- NOTE | 2024-02-18 | DI.MAMMO_ITS ---
Exam(s) MAMMO SCREENING EXAM: MAMMO SCREENING CLINICAL HISTORY: SCREENING, Z12.31 TECHNIQUE: Mammograms were interpreted according to the usual protocol including computer analysis w [employer] CAD system, tomosynthesis and C-view imaging. COMPARISON: 2018 through 2022 FINDINGS: The breasts are composed of scattered fibroglandular densities, Breast Density category B. No suspicious masses or suspicious microcalcifications are seen. No skin thickening or abnormal axillary lymph nodes are seen. There has been no significant change from prior exams. IMPRESSION: BI-RADS Category 1, Negative mammogram Yearly screening mammography is recommended. Breast Density - Category B, scattered fibroglandular densities. A negative radiographic report should not delay biopsy if a dominant or clinically suspicious mass is present. Up to ten percent of cancers are not identified on mammography. A negative report may reinforce clinical impression. Adenosis and dense breasts may obscure an underlying neoplasm. False positive reports average 6 to 10%. Patient will receive a letter notifying them of these results.
--- NOTE | 2024-02-18 | DI.DEXA_ITS ---
Exam(s) XR DEXA BONE DENSITY W/WO ALEXYS EXAM: XR DEXA BONE DENSITY W/WO ALEXYS CLINICAL HISTORY: MENOPAUSE PRESENT,Z78.0 TECHNIQUE: [employer] C densitometer analysis of left hip, lumbar spine and left forearm. Lat eral survey image of the thoracic and lumbar spine. COMPARISON: No exams were available for comparison FINDINGS: Lateral view of the thoracic and lumbar spine shows no evidence of compression fractures. Bone mineral density measurements of the lumbar spine correspond to a total T-score of -1.9, in the osteopenic range. Bone mineral density measurements of the left hip correspond to a total T-score of -0.9 . The femora l neck T-score is -2.2, in the osteopenic range.. Theleft forearm bone mineral density measurements correspond to a T-score of the distal 3rd of -0.5, in the normal range.. IMPRESSION: Normal bone mineral density of the forearm. Osteopenia of the spine and hip.
== END 2024-02-18 02:20 ==
LOC: DI 02:00
PROVIDERS: PCP Nurse Practitioner Family; Visit Provider Nurse Practitioner Family
DX: Z78.0 Asymptomatic menopausal state (principal); Z12.31 Encounter for screening mammogram for malignant neoplasm of breast; M85.852 Other specified disorders of bone density and structure, left thigh; M85.88 Other specified disorders of bone density and structure, other site
CPT/HCPCS: 77063; 77067; 77080

== ENCOUNTER 2024-05-04 16:08 | Emergency (ER) | payer MEDICARE, BC, SELFPAY ==
[2024-05-04 16:09] VITALS: BP 159/89; PULSE 67; RESP 16; TEMP 35.8; O2SAT 96
--- NOTE | 2024-05-04 16:15 | DI.RAD_ITS ---
Exam(s) XR ANKLE LT COMPLETE EXAM: XR ANKLE LT COMPLETE CLINICAL HISTORY: L ankle twisting injury TECHNIQUE: 2D digital imaging was performed of the left ankle. Three images were obtained. AP, lat eral and oblique views were obtained. COMPARISON: No exams were available for comparison FINDINGS: BONES: No acute fracture is present. No bony destructive lesion is seen. There is a large osteophyte at the plantar surface of the calcaneus. JOINTS:The ankle mortise is normally aligned. SOFT TISSUE: There is soft tissue swelling of the ankle laterally. No soft tissue gas or radiopaque foreign body is identified. IMPRESSION: Soft tissue swelling of the ankle laterally. No acute fracture or dislocation. DATA REPOSITORY: RADIATION DOSE DELIVERED:
--- NOTE | 2024-05-04 16:17 | W.ED.GENAD ---
Discharge Plan Disposition Patient Disposition: Home Condition: Stable Discharge Details Clinical Impression: Sprain of left ankle Primary Care Provider: Citlali Calles ED Provider: Jacques Baker Home Meds and New Rx's Prescriptions: Continued paroxetine HCl 20 mg Tablet 20 mg PO DAILY ibuprofen 600 mg tablet 600 mg PO Q6H PRN (Reason: pain and inflammation) Qty: 60 0RF Discharge Instructions Instructions: Ankle Sprain ED Additional Instructions: You were seen in the emergency department for the sprain of your left ankle, there is no acute fracture seen on x-ray. Need to keep this wrapped with an Quincy wrap, rest, ice, compress and elevate the ankle often over the next few days. Please use therapeutic dosing of Tylenol (acetamenophen) & Advil (ibuprofen) in an alternating fashion as follows: Take 1000mg of Tylenol every 6 hours without missing doses- that is 4 times per day. Snf in between the Tylenol dosings, take 400-600mg of Advil also on a 6 hour schedule, that is also 4 times per day. The daily maximum dosing of Tylenol is 4000mg, and the daily maximum dosing of Advil is 2400mg. This is safe to do for weeks. Please note that some common cold medications & prescription pain medications may contain acetamenophen and you need to read OTC drug labels and factor that in to maximum daily dosings. Please follow-up with orthopedics for any consistent pain past 2 weeks with range of motion deficits for evaluation of ligamentous possible injury. Return to the emergency department for signs of complete neurovascular compromise of the left foot. Referrals: [facility] [Provider Group] Citlali Calles [Primary Care Provider] - HPI General Date/Time Provider Initiated Documentation: 05/04/24 16:17. HPI Narrative: 63 year-old female presents to ED today by POV/ambulating with a chief complaint of L ankle twisting injury while walking in the [place] with onset around 1030 this morning. Quality described as throbbing pain, no radiation to numbness, endorses mild swelling to lateral malleolus, denies fibular head pain, endorses bruising. Severity is described as moderate. Palliating factors include RICE and Tylenol/NSAID today with some relief. Provoking factors include weight bearing and inversion/eversion. Events leading up to the incident/Associated Symptoms: Patient is R-foot dominant. Patient not anticoagulated. Related Data Home Medications ?Medication ?Instructions ?Recorded ?Confirmed ibuprofen 600 mg tablet 600 mg PO Q6H PRN pain and 04/19/21 05/04/24 inflammation #60 tabs paroxetine HCl 20 mg tablet 20 mg PO DAILY 04/19/21 05/04/24 Previous Rx's ?Medication ?Instructions ?Recorded ibuprofen 600 mg tablet 600 mg PO Q6H PRN pain and 04/19/21 inflammation #60 tabs Allergies Allergy/AdvReac Type Severity Reaction Status Date / Time Sulfa (Sulfonamide Allergy Severe Other (See Unverified 05/04/24 16:13 Antibiotics) Comment) General Stated Complaint: Orthopedic JORGE: 4 Review of Systems All systems reviewed & are unremarkable except as noted in HPI and below Exam Narrative Exam Narrative: GENERAL APPEARANCE: Well-nourished, non-toxic, awake and alert, atraumatic, no acute distress. SKIN: Warm, pink, dry, intact, without rashes/lesions/ulcerations. HEAD: Normocephalic, atraumatic, normal hair distribution for gender/age. EYES: Normal conjunctiva, no exudates on lids/lashes. ENT: Nares patent, no circumoral cyanosis, no facial swelling NECK: Supple, trachea midline, painless cervical ROM. LUNGS/CHEST: Non-labored respirations, normal A/P diameter, symmetrical expansion, no chest wall deformity HEART (CV/PV): Regular rate, no peripheral edema, no JVD. ABDOMEN: Soft, non-distended, no guarding. MSK: Normal ROM, no swelling/deformity to bilateral UEs or LEs, moving all extremities without weakness, no cyanosis, spine midline without tenderness, normal curvature, left lateral malleolus swelling and bruising without crepitus, able to plantar/dorsiflex the foot, left dorsalis pedis pulse 2+, no fibular head tenderness NEURO: Mental Status AAOx4 - alert to person, place, time, events No facial droop, no forehead involvement. Motor: No focal weakness - strength 5/5 in bilateral UEs and LEs, proximal and distal, symmetric. Sensory: sensation intact to light touch globally. Gait antalgic. PSYCH: euthymic, cooperative, pleasant, appropriate speech Course Vital Signs Vital signs: Vital Signs Temperature 35.8 C L 05/04/24 16:09 Pulse 67 05/04/24 16:09 Respiratory Rate 16 05/04/24 16:09 Blood Pressure 159/89 H 05/04/24 16:09 Pulse Oximetry 96 05/04/24 16:09 Temperature 35.8 C L 05/04/24 16:09 Pulse 67 05/04/24 16:09 Respiratory Rate 16 05/04/24 16:09 Respiratory Effort Normal 05/04/24 16:13 Blood Pressure 159/89 H 05/04/24 16:09 Pulse Oximetry 96 05/04/24 16:09 Pain Level 8 05/04/24 16:09 Medical Decision Making This dictation utilizes [id number] dictation software and may contain unedited grammatical errors. 63 year-old female presents to ED today by POV/ambulating with a chief complaint of L ankle twisting injury while walking in the [place] with onset around 1030 this morning. Quality described as throbbing pain, no radiation to numbness, endorses mild swelling to lateral malleolus, denies fibular head pain, endorses bruising. Severity is described as moderate. Palliating factors include RICE and Tylenol/NSAID today with some relief. Provoking factors include weight bearing and inversion/eversion. Events leading up to the incident/Associated Symptoms: Patient is R-foot dominant. Patients' medical history: Noncontributory. Family and social history: Noncontributory, exercises daily. Pertinent exam findings / vital signs include left lateral malleolus swelling and bruising without crepitus, able to plantar/dorsiflex the foot, left dorsalis pedis pulse 2+, no fibular head tenderness. Differential / pathologies of concern include fracture, sprain/strain, contusion. Diagnostic studies of: -XR L ankle -shows no acute fracture. Interventions of: -quincy wrap. ED Course/Assessment/Plan: 63-year-old female twisted her left ankle walking in the [place] today, is able to ambulate but antalgic, is right foot dominant, has no fracture on x-ray, and is comfortable with Quincy wrap and RICE therapy and therapeutic dosing of Tylenol and ibuprofen at home, I recommend orthopedic eval for any severe pain lasting longer than 2 weeks with range of motion deficits, strict return criteria for signs of neurovascular compromise. Findings not consistent with fracture, neurovascular compromise. Disposition of sprain of left ankle. Patient verbalized understanding of the plan and return to ED criteria and engaged in shared decision making. Medical Records Medical records reviewed: Yes I reviewed the patient's medical records. Imaging Data Radiologic Study: Attestation: I personally reviewed and interpreted this imaging study as follows: Imaging: X-Ray Radiologist's impression: EXAM: XR ANKLE LT COMPLETE CLINICAL HISTORY: L ankle twisting injury TECHNIQUE: 2D digital imaging was performed of the left ankle. Three images were obtained. AP, lateral and oblique views were obtained. COMPARISON: No exams were available for comparison FINDINGS: BONES: No acute fracture is present. No bony destructive lesion is seen. There is a large osteophyte at the plantar surface of the calcaneus. JOINTS:The ankle mortise is normally aligned. SOFT TISSUE: There is soft tissue swelling of the ankle laterally. No soft tissue gas or radiopaque foreign body is identified. IMPRESSION: Soft tissue swelling of the ankle laterally. No acute fracture or dislocation. Quality:SDOH Health Related Social Needs: No Data to Display PFSH All Active Problems (Updated 05/04/24 @ 16:47 by ELIZABETH Gibbons) Sprain of left ankle (Acute) Hallux limitus of left foot (Acute) Medical History Depression Finger pain, left IBS (irritable bowel syndrome) Vaginal dryness Social History Smoking/Tobacco Use Status: Never Smoking risk assessment performed?: Yes Alcohol Intake: current Alcohol Intake frequency: 0-2 drinks per day Alcohol type: wine Drug use: Never Substance use type: does not use Do you feel safe at home: Yes Do you feel safe in your relationship?: Yes
[2024-05-04 17:00] VITALS: BP 147/82; PULSE 62; RESP 16; O2SAT 99
== END 2024-05-04 17:01 | disposition home or self-care (01) ==
PROVIDERS: Emergency Provider Physician Assistant; PCP Nurse Practitioner Family
DX: S93.402A Sprain of unspecified ligament of left ankle, initial encounter (principal); X50.1XXA Overexertion from prolonged static or awkward postures, initial encounter; Y93.01 Activity, walking, marching and hiking; Y92.838 Other recreation area as the place of occurrence of the external cause
CPT/HCPCS: 99283; 73610

== ENCOUNTER 2024-08-18 12:02 | Outpatient (REF) | payer MEDICARE, BC, SELFPAY | END 2024-08-18 12:03 | disposition home or self-care (01) | LOC: NCHCN 12:02 | PROVIDERS: PCP Nurse Practitioner Family; Visit Provider Nurse Practitioner Family | DX: R30.0 Dysuria (principal); R82.89 Other abnormal findings on cytological and histological examination of urine | CPT/HCPCS: 87086 ==

== ENCOUNTER 2024-09-22 11:42 | Outpatient (REF) | payer MEDICARE, BC, SELFPAY ==
[2024-09-22 15:23] LABS: Bacteria Few HPF (Negative); C & S Indicated? No; Casts Negative LPF (Negative); Crystals Negative HPF (Negative); Epithelial Cells Few HPF (Negative); Mucus Negative (Negative); RBC 0-2 HPF (0-2); WBC 0-2 HPF (0-5)
== END 2024-09-22 11:43 | disposition home or self-care (01) ==
LOC: NCHCN 11:42
PROVIDERS: PCP Nurse Practitioner Family; Visit Provider Nurse Practitioner Family
DX: N89.8 Other specified noninflammatory disorders of vagina (principal); R31.29 Other microscopic hematuria
CPT/HCPCS: 81015; 87480; 87510; 87660

== ENCOUNTER 2024-10-25 00:43 | Outpatient (CLI) | payer MEDICARE, BC, SELFPAY ==
--- NOTE | 2024-10-25 | DI.US_ITS ---
Exam(s) US PELVIS TRANSVAGINAL EXAM: US PELVIS TRANSVAGINAL CLINICAL HISTORY: Postcoital and contact bleeding, N93.0 TECHNIQUE: Ultrasound of the pelvis was performed both transabdominal and transvaginal. COMPARISON: FINDINGS: UTERUS: Uterus is retroflexed. Measures 7 cm length x 2.4 cm AP x 3.3 cm wide. The myometrium appears somewhat heterogeneous but there are no obvious uterine fibroids. Endometrial thickness measures 3 mm. There is a nonshadowing hyperechoic focus associated with the p osterior right side of the endometrium measuring 3 mm. Possibly representing submucosal polyp. There is no fluid in the endometrial canal. CERVIX: There are no obvious nabothian cysts. RIGHT OVARY: Measures 1.5 x 1.9 x 1.0 cm No significant cysts nor masses evident in the right ovary. LEFT OVARY: Measures 1.5 x 1.0 x 1.5 cm No significant cysts nor masses evident in the left ovary. CUL-DE-SAC: No free fluid evident. IMPRESSION: 1. There is a single 3 millimeter hyperechoic focus associated with the deep aspect of the posterior right side of the endometrium. This does not exhibit shadowing. May represent a hyperechoic polyp. There is no fluid in the endometrial canal. 2. No abnormal ovarian findings. 3. No free fluid evident in the adnexal regions and cul-de-sac. DATA REPOSITORY:
== END 2024-10-25 01:03 ==
LOC: DI 00:43
PROVIDERS: PCP Nurse Practitioner Family; Visit Provider Nurse Practitioner Family
DX: N39.0 Urinary tract infection, site not specified (principal); R93.5 Abnormal findings on diagnostic imaging of other abdominal regions, including retroperitoneum
CPT/HCPCS: 76830; 76856

== ENCOUNTER → 2024-12-15 13:17 | Outpatient (BNVA) | payer MEDICARE, BC, SELFPAY | PROVIDERS: PCP Nurse Practitioner Family; Referring Provider Nurse Practitioner Family; Visit Provider Surgery | DX: Z12.11 Encounter for screening for malignant neoplasm of colon (principal) | CPT/HCPCS: S0285 ==

== ENCOUNTER 2025-01-10 13:27 | Outpatient (REF) | payer MEDICARE, BC, SELFPAY ==
[2025-01-10 15:13] LABS: HCT 37.3 % (36.0-46.0); HGB 12.4 g/dL (11.2-15.7); MCH 30.3 pg (27.0-33.0); MCHC 33.2 % (32.0-36.0); MCV 91 fL (80-95); MPV 10.2 fL (8.0-11.0); Platelet Count 277 10^3/uL (130-400); RBC 4.09 10^6/uL (3.93-5.22); RDW 12.5 % (11.7-14.6); RDW-SD 41.7 fL; WBC 6.54 10^3/uL (4.4-10.8)
[2025-01-10 15:31] LABS: ALT 22 U/L (14-59); AST 19 U/L (15-37); Albumin 3.7 g/dL (3.4-5.0); Alkaline Phosphatase 102 U/L (46-116); Anion Gap 5.6 mmol/L (3-11); BUN 19 mg/dL (7-18); Bilirubin, Total 0.3 mg/dL (0.2-1.0); CO2 28.4 mmol/L (21.0-32.0); Calcium 9.0 mg/dL (8.5-10.1); Calculated LDL 137 mg/dL (<100); Chloride 100 mmol/L (98-107); Cholesterol 250 mg/dL (<200); Estimated GFR 70.51 (mL/min/1.73m2); Glucose 85 mg/dL (74-106); HDL Cholesterol 106 mg/dL (>or=50); Potassium 4.5 mmol/L (3.5-5.1); Sodium 134 mmol/L (136-145); Total Protein 6.7 g/dL (6.4-8.2); Triglyceride 39 mg/dL (<150)
== END 2025-01-10 13:28 | disposition home or self-care (01) ==
LOC: NCHCN 13:27
PROVIDERS: PCP Nurse Practitioner Family; Visit Provider Nurse Practitioner Family
DX: Z13.220 Encounter for screening for lipoid disorders (principal); Z00.00 Encounter for general adult medical examination without abnormal findings
CPT/HCPCS: 80053; 80061; 85027

== ENCOUNTER 2025-02-03 06:14 | Day surgery (SDC) | payer MEDICARE, BC, SELFPAY ==
--- NOTE | 2025-02-02 13:04 | W.PREOPHP ---
Assessment and Plan Assessment and plan (1) Encounter for screening colonoscopy: Status: Acute Assessment and plan: We reviewed the plan for screening colonoscopy, and I went over the risks and benefits once again. Danielle had the chance to ask any new questions, and we can proceed with colonoscopy as planned. History of Present Illness History of Present Illness Chief Complaint: Screening colonoscopy Narrative: On is 64 years old, she is referred for screening colonoscopy as her positive Cologuard test. She did undergo traditional colonoscopy about 16 years ago, and she recalls it was negative. Otherwise, she is in her usual state of health. She denies any melena, hematochezia, or any concerning GI symptoms. She denies any family history of colon or rectal cancers. She is got no abdominal surgical history. There have been no major changes with regards to the interval history since last office encounter PFSH All Active Problems Encounter for screening colonoscopy (Acute) Skin lesion (Acute) Disorder of the skin and subcutaneous tissue, unspecified (Acute) Hallux limitus of left foot (Acute) Medical History Positive colorectal cancer screening using Cologuard test Dysuria Microscopic hematuria Injury of left wrist Noninflammatory disorder of vagina Menopause present Dizziness and giddiness Neck pain Spinal stenosis in cervical region Cervical spondylosis without myelopathy Ankle pain Major depression, single episode Hyponatremia Depression IBS (irritable bowel syndrome) Vaginal dryness Finger pain, left Surgical History History of bunionectomy 2020 Family History (Updated 05/30/24 @ 10:25 by Gifty Cummings RN) Maternal Grandmother Breast cancer Social History Smoking/Tobacco Use Status: Never Smoking risk assessment performed?: Yes Alcohol Intake: current Alcohol Intake frequency: 0-2 drinks per day Alcohol type: wine Drug use: Never Substance use type: does not use Housing: house Do you feel safe at home: Yes Do you feel safe in your relationship?: Yes Meds Allergies and Home Medications Allergies Allergy/AdvReac Type Severity Reaction Status Date / Time Sulfa (Sulfonamide Allergy Severe Other (See Unverified 02/03/25 06:30 Antibiotics) Comment) Home Medications ?Medication ?Instructions ?Recorded ?Confirmed ?Type ibuprofen 600 mg tablet 600 mg PO Q6H PRN pain and 04/19/21 12/15/24 Rx inflammation #60 tabs estradiol 10 mcg vaginal tablet 10 mcg vaginal .twice weekly 05/30/24 02/03/25 History paroxetine HCl 20 mg tablet 10 mg PO DAILY 05/30/24 02/03/25 History ondansetron HCl 4 mg tablet 4 mg PO Q8H PRN nausea and 12/15/24 12/15/24 Rx vomiting #3 tabs Exam Const General: cooperative, healthy appearing and not in acute distress Neck Neck: normal visual inspection, no lymphadenopathy and supple Resp Effort & Inspection: normal respiratory effort Auscultation: clear to auscultation bilaterally Cardio Jugular venous pressure: no JVD Rate: regular rate Rhythm: regular rhythm Heart Sounds: S1 normal and S2 normal GI Inspection: normal to inspection Palpation: soft, no guarding, no hernias and nontender Percussion: normal to percussion Auscultation: normal bowel sounds Neuro General: patient alert, patient awake and patient oriented x3 Psych Appearance: grossly normal
--- NOTE | 2025-02-02 13:05 | W.PM.DSUDISC ---
Date of service: 02/03/25 Discharge Plan Disposition Patient Disposition: Home Condition: Good Discharge Details Reason For Visit: Screening colonoscopy Attending Provider: Clyde White Primary Care Provider: Citlali Calles Home Meds and New Rx's Prescriptions: Continued ondansetron HCl 4 mg tablet 4 mg PO Q8H PRN (Reason: nausea and vomiting) Qty: 3 0RF Rx Instructions: Take 1 tablet by mouth up to every 8 hours if needed for nausea or vomiting during the course of colonoscopy paroxetine HCl 20 mg tablet 10 mg PO DAILY estradiol 10 mcg tablet 10 mcg vaginal .twice weekly ibuprofen 600 mg tablet 600 mg PO Q6H PRN (Reason: pain and inflammation) Qty: 60 0RF Discontinued bisacodyl [Dulcolax (bisacodyl)] 5 mg tablet,delayed release (DR/EC) 5 mg PO ONCE Qty: 4 0RF Rx Instructions: take per colonoscopy instructions polyethylene glycol 3350 17 gram/dose powder 238 g PO ONCE Qty: 238 0RF Rx Instructions: take per colonoscopy instructions Discharge Instructions Instructions: Colon polyps, Diverticulosis Additional Instructions: Danielle, is great seeing you today. I hope you feel well after the procedure. Everything went very smoothly. Your prep was excellent, and I could see everything fine. I did find, and removed, 2 tiny polyps today. These will both be sent to the pathologist for them to review. Once I know the nature of these polyps, I can offer better recommendations for the timing of future colonoscopies. Incidentally, he also have some diverticulosis. Diverticula are little weak spots in the muscular wall of the colon. This causes little pockets or pouches to form. These can get infected or inflamed. Hopefully yours will never bother you. I will attach some basic information here about colorectal polyps as well as diverticulosis. If you need anything at all, please do not hesitate to call at any time. 1. If tolerated, consume a soft, low fiber diet for 1-2 days. 2[address] Do not drive, drink alcohol, operate machinery, make critical decisions, or do activities that require coordination or balance for 24 hours. 3. Because air was put into your colon during the procedure, expelling air from your rectum (passing gas or farting) is normal. 4. You may not have a bowel movement for 1-3 days because of the colonoscopy prep. This is normal. 5. Go directly to the emergency room if you notice any of the following: Develop chills (warm to touch), or if you have a thermometer and your temperature is above 101 Difficulty breathing or difficultly swallowing Persistent vomiting Severe abdominal pain, other than gas cramps Severe chest pain Black, tarry stools Any bleeding ? exceeding one tablespoon 6. Call your physician if the site where your intravenous was started becomes red, swollen, painful, and warm to touch. 7. Your physician has reviewed your pre-procedure medications. Please continue to take those medications as previously ordered. You will be given specific information/education regarding any changes to your medications before leaving. Stand Alone Forms: Anesthesia Discharge Inst., Zoe Villasenor (DSU) Activity:: Activity as Tolerated Diet:: As Tolerated Discharge Orders Discharge Orders: Discharge Order (Routine); Ordered 02/02/25 Ordered By: Clyde White DS: Diagnosis Discharge Diagnosis (1) Encounter for screening colonoscopy: Status: Acute Asessment and Plan: Follow-up on polypectomy results
--- NOTE | 2025-02-02 13:06 | W.COLOREPORT ---
Date of service: 02/03/25 Time of Service: : Colonoscopy Report Date of procedure: 02/03/25 Pre-op diagnosis general: Screening colonoscopy Post-op diagnosis procedure note: other (Diverticulosis, colon polyp) Procedure: Colonoscopy with polypectomy Surgeon: Clyde White Anesthesia Type: General:No Airway Estimated blood loss (mL): 5 Pathology: other (0.25 cm flat polyp at 55 cm, 0.25 cm flat polyp at 20 cm) Complications: None Disposition: same day Indications: Danielle is a 64-year-old woman with positive Cologuard test. She needs a follow-up screening colonoscopy Prep: Miralax/Dulcolax Procedure Start Time: 07:32 Procedure End Time: 08:02 Retraction Time: 14 Findings: 0.25 cm flat polyp at 55 cm, 0.25 cm flat polyp at 20 cm; sigmoid diverticulosis Procedure Description: After the induction of anesthesia, and with Danielle in left lateral decubitus position, I began by performing an external anorectal exam.? Perineum and skin were normal, as was the anal verge.? Next, I performed a digital rectal exam.? I did not appreciate any abnormal findings.? Next, I advanced a colonoscope into the rectal vault.? I performed retroflexion.? This appeared normal.? Using insufflation, I then advanced the colonoscope beyond the rectal folds and into the sigmoid colon before advancing towards the cecum.? The quality of the prep was excellent.? The scope was noted to be in the cecum by identification of the ileocecal valve and appendiceal orifice.? I then began withdrawing the colonoscope using repeated irrigation as necessary for full evaluation of the colonic mucosa. Around 55 cm from the anal verge was a 0.25 cm flat polyp. This was removed with cold forceps with minimal bleeding. Another 0.25 cm flat polyp was found around 20 cm from the anal verge. This was also removed with cold forceps without issues. There was some sigmoid diverticulosis. ?Once the scope was withdrawn to the level of the rectum, great care was taken to examine portions of the rectal folds.? Finally, the scope was withdrawn and the patient was brought to the same-day surgery recovery unit as the anesthetic wore off. ?The findings and instructions were shared with the patient prior to discharge. Clifton Bowel Prep Clifton Bowel Prep Right Colon: 3 Left Colon: 3 Transverse Colon: 3 Total Score: 9
[2025-02-03 06:31] VITALS: BP 137/81; PULSE 61; RESP 18; TEMP 36.5; O2SAT 100
[2025-02-03] MEDS: Lactated Ringers 1,000 ML 80 ML IV (06:56)
--- NOTE | 2025-02-03 07:16 | W.ANESPRE ---
General Info Date of Service Date Performed: 02/03/25 Height: 5 ft 1 in Weight: 58.8 kg Body Mass Index (BMI): 24.5 Surgical Procedure: Operation Date: 02/03/25 07:35 Proposed Procedure Side Surgeon p Colonoscopy Clyde White MD Actual Procedure Side Surgeon p Colonoscopy Not Applicable Clyde White MD Pre-Op Diagnosis Post-Op Diagnosis + Cologuard Meds Allergies and Home Medications Allergies Allergy/AdvReac Type Severity Reaction Status Date / Time Sulfa (Sulfonamide Allergy Severe Other (See Unverified 02/03/25 06:30 Antibiotics) Comment) Home Medication ?Medication ?Instructions ?Recorded ibuprofen 600 mg tablet 600 mg PO Q6H PRN pain and 04/19/21 inflammation #60 tabs estradiol 10 mcg vaginal tablet 10 mcg vaginal .twice weekly 05/30/24 paroxetine HCl 20 mg tablet 10 mg PO DAILY 05/30/24 ondansetron HCl 4 mg tablet 4 mg PO Q8H PRN nausea and 12/15/24 vomiting #3 tabs Current Visit Medications: Current Medications Generic Name Dose Route Start Last Admin Trade Name Freq PRN Reason Stop Dose Admin Ringer's Solution 1,000 mls @ 80 mls/hr 02/03/25 06:00 02/03/25 06:56 IV 02/03/25 23:59 80 mls/hr INFUSION MAURICE Administration IV Miscellaneous Supplies 1 each 02/03/25 06:00 Iv Access IV 02/03/25 23:59 DIRECTED MAURICE Ondansetron HCl 4 mg 02/02/25 13:07 Ondansetron 4 Mg/2 Ml Vial IVP 03/04/25 13:06 Q4H PRN PRN Nausea / Vomiting Sodium Chloride 0 ml 02/03/25 06:00 Normal Saline Flush 10 Ml Syr IV 02/03/25 23:59 PRN PRN Sodium Chloride 0 ml 02/03/25 06:00 Normal Saline 10 Ml Vial IJ 02/03/25 23:59 DIRECTED PRN Sterile Water 0 ml 02/03/25 06:00 Water,Injection,Sterile 10 Ml Vial IJ 02/03/25 23:59 DIRECTED PRN PFSH Active Problems Active Problems: Problem Status Onset Code Encounter for screening colonoscopy Acute Z12.11 Skin lesion Acute L98.9 Disorder of the skin and subcutaneous tissue, unspecified Acute L98.9 Hallux limitus of left foot Acute M20.5X2 Medical History Medical History Positive colorectal cancer screening using Cologuard test Dysuria Microscopic hematuria Injury of left wrist Noninflammatory disorder of vagina Menopause present Dizziness and giddiness Neck pain Spinal stenosis in cervical region Cervical spondylosis without myelopathy Ankle pain Major depression, single episode Hyponatremia Depression IBS (irritable bowel syndrome) Vaginal dryness Finger pain, left Surgical History Surgical History History of bunionectomy 2020 Tobacco Smoking/Tobacco Use Status: Never Alcohol Alcohol Intake: current Alcohol intake frequency: 0-2 drinks per day Alcohol type: wine Substance Use Substance use: Never Substance use type: does not use Vital Signs and Lab Results Vital Signs Most Recent Vital Signs in EMR: Most Recent Vital Signs Temp Pulse Resp BP Pulse Ox 36.5 C 61 18 137/81 100 02/03/25 06:31 02/03/25 06:31 02/03/25 06:31 02/03/25 06:31 02/03/25 06:31 Lab Results Complete Blood Count: WBC, (4.4-10.8) 6.54 10^3/uL 01/10/25, 11:45 RBC, (3.93-5.22) 4.09 10^6/uL 01/10/25, 11:45 Hgb, (11.2-15.7) 12.4 g/dL 01/10/25, 11:45 Hct, (36.0-46.0) 37.3 % 01/10/25, 11:45 Plt Count, (130-400) 277 10^3/uL 01/10/25, 11:45 Complete Metabolic Panel: Sodium, (136-145) 134 mmol/L L 01/10/25, 11:45 Potassium, (3.5-5.1) 4.5 mmol/L 01/10/25, 11:45 Chloride, (98-107) 100 mmol/L 01/10/25, 11:45 Carbon Dioxide, (21.0-32.0) 28.4 mmol/L 01/10/25, 11:45 BUN, (7-18) 19 mg/dL H 01/10/25, 11:45 Creatinine, (0.55-1.02) 0.9 mg/dL 01/10/25, 11:45 Est GFR (CKD-EPI 2020), (mL/min/1.73m2) 70.51 01/10/25, 11:45 Calcium, (8.5-10.1) 9.0 mg/dL 01/10/25, :45 Albumin, (3.4-5.0) 3.7 g/dL 01/10/25, :45 Glucose, (74-106) 85 mg/dL 01/10/25, :45 Liver Function Panel: ALT, (14-59) 22 U/L 01/10/25, :45 AST, (15-37) 19 U/L 01/10/25, :45 Anesthesia Assessment and Plan Anesthesia History Personal History: No History of General Anesthesia Family History: No Family History of Anesthesia Complications Exercise Tolerance Exercise Tolerance: Metabolic Equivalents>4 Pertinent Negatives Pertinent Negatives: No Symptoms of GERD, No Major Cardiovascular Symptoms or Complaints, No Major Pulmonary Symptoms or Complaints and No History of CVA/TIA Cardiac & Pulmonary Exam Cardiac Exam: Normal S1/S2 Heart Sounds Pulmonary Exam: Clear Bilateral Breath Sounds Implantable Cardiac Device Does patient have a Pacemaker or an ICD?: No Airway Exam Known Difficult Airway: No Mallampati Class: 2 Mouth Opening: Normal (> 3cm) Thyromental Distance: Greater than 3 cm Neck Range of Motion: Full ROM Neck Circumference: Normal Teeth Condition: Normal Dentition Airway Comments: Bottom back chipped tooth #21 chipped ASA Classification ASA Score: ASA 2 Emergency Case?: No NPO Status NPO Status: NPO Clears >2 hours, Solids >8 hours Anesthesia Plan Resuscitation Status: Full Code Anesthesia Technique: General Anesthesia Airway Planned: Natural Airway Monitors Used: Standard Monitors
[2025-02-03 07:19] VITALS: BMI 24.5
--- NOTE | 2025-02-03 07:54 | BOWEL_PTH ---
PATIENT: Danielle Coronado LOC: [facility] U#:[id number] AGE/SX: 64/F ROOM: RE02/03/[address]: Clyde White MD : 1960 BED: DIS: 02/03/2025 SPEC #: [id number] RECD: 02/03/25 12:09 STATUS: CECILIA REQ #: [id number] RADHA: 02/03/25 07:[address]: Clyde White DEPT: Surgical Specimen RECD BY: Lanette Briggs ENTERED: 02/03/25 12:10 SP TYPE: Bowel OTHR DR: Citlali Calles Tissues: 1 - BIOPSY BOWEL 2 - BIOPSY BOWEL Procedures: GROSS AND MICRO LEVEL 4 Comments: [id number]
[2025-02-03 08:06] VITALS: BP 106/66; PULSE 58; RESP 16; TEMP 36.3; O2SAT 98
[2025-02-03 08:34] VITALS: BP 129/94; PULSE 57; RESP 16; TEMP 36.4; O2SAT 100
--- NOTE | 2025-02-03 09:04 | W.ANESPOSTOP ---
Postoperative Evaluation Date, Time and Location Date Performed: 02/03/25 Time Performed: 08:28 Patient Location: Day Surgery Unit Vital Signs Most Recent Imported Vital Signs: Most Recent Vital Signs Temp Pulse Resp BP Pulse Ox 36.4 C L 57 L 16 129/94 H 100 02/03/25 08:34 02/03/25 08:34 02/03/25 08:34 02/03/25 08:34 02/03/25 08:34 Pain Score Most Recent Pain Score: Most Recent Pain Score Pain Level 0 02/03/25 08:34 Assessment Mental Status: Awake (Alert & Oriented to Patient Baseline) Airway and Respiratory Function: Patent airway with normal (patient baseline) respiratory exam Cardiovascular Function: Hemodynamically Stable Hydration Status: Adequately Hydrated Nausea & Vomiting: No Nausea or Vomiting Pain: Pt. Denies Any Pain Peripheral Nerve Block: Patient did not receive a nerve block
== END 2025-02-03 08:47 | disposition home or self-care (01) ==
LOC: SUR 06:15
PROVIDERS: PCP Nurse Practitioner Family; Visit Provider Surgery
PROC: 0DJD8ZZ Inspection of Lower Intestinal Tract, Via Natural or Artificial Opening Endoscopic (ICD-10-PCS; CPT 45378; principal; 2025-02-03 07:30)
DX: Z12.11 Encounter for screening for malignant neoplasm of colon (principal); K57.30 Diverticulosis of large intestine without perforation or abscess without bleeding; K63.5 Polyp of colon; K63.89 Other specified diseases of intestine
CPT/HCPCS: 45380; 88305; J2704

== ENCOUNTER 2025-05-02 18:37 | Emergency (ER) | payer MEDICARE, BC, SELFPAY ==
[2025-05-02] VITALS (13 sets, daily range): BP systolic 131–185; BP diastolic 65–113; PULSE 67–83; RESP 13–24; TEMP 36.6; O2SAT 93–100
--- NOTE | 2025-05-02 18:45 | RT.EKG_ITS ---
APPROVED REPORT Exam: Resting ECG Reason for Exam: nausea Patient Location: E HR:68 bpm ECG Measurements Heart Rate 68 AXIS AR 175 P 64 QRSd 80 QRS 38 QT 449 T 27 QTc 478 Conclusion Sinus rhythm, rate 68 No interval abnormalities No STEMI Q wave V1 and V2, no priors available for comparison
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
[2025-05-02] MEDS: Prochlorperazine 10 MG/2 ML VIAL 5 MG IVP (19:29)
[2025-05-02] MEDS: LORazepam 20 MG/10 ML VIAL IVP (19:30)
[2025-05-02] MEDS: ACETAMINOPHEN 500 MG/50 ML BAG 200 MG IVPB (19:32)
[2025-05-02] MEDS: Normal Saline 1,000 ML 1000 ML IV (19:38)
[2025-05-02 19:44] LABS: Abs Immature Grans 0.06 10^3/uL (0.0-0.06); HCT 37.3 % (36.0-46.0); HGB 12.7 g/dL (11.2-15.7); Immature Grans % 0.5 %; MCH 30.5 pg (27.0-33.0); MCHC 34.0 % (32.0-36.0); MCV 89 fL (80-95); MPV 9.7 fL (8.0-11.0); Platelet Count 250 10^3/uL (130-400); RBC 4.17 10^6/uL (3.93-5.22); RDW 12.3 % (11.7-14.6); RDW-SD 40.5 fL; WBC 12.89 10^3/uL (4.4-10.8)
[2025-05-02 20:05] LABS: ALT 17 U/L (10-49); AST 33 U/L (<34); Albumin 4.6 g/dL (3.4-5.0); Alkaline Phosphatase 92 U/L (46-116); Anion Gap 5.2 mmol/L (3-11); BUN 14 mg/dL (9-23); Bilirubin, Total 0.50 mg/dL (0.2-1.2); CO2 24.8 mmol/L (20.0-31.0); Calcium 9.0 mg/dL (8.3-10.6); Chloride 102 mmol/L (98-107); Glucose 152 mg/dL (74-106); Potassium 4.0 mmol/L (3.5-5.1); Sodium 132 mmol/L (136-145); Total Protein 7.5 g/dL (5.7-8.2)
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
== END 2025-05-03 05:46 | disposition short-term general hospital (02) ==
LOC: ER 18:40
PROVIDERS: Emergency Provider Physician Assistant; PCP Nurse Practitioner Family
DX: S06.5X0A Traumatic subdural hemorrhage without loss of consciousness, initial encounter (principal); R11.2 Nausea with vomiting, unspecified; R51.9 Headache, unspecified; H53.8 Other visual disturbances; V48.5XXA Car driver injured in noncollision transport accident in traffic accident, initial encounter
CPT/HCPCS: 80053; 93005; 96361; 96365; 96375; 99285; 70450; 72125; 85025; 93010; J0131; J0780; J2060

== ENCOUNTER → 2025-05-12 13:13 | Outpatient (CLI) | payer MEDICARE, BC, SELFPAY ==
--- NOTE | 2025-05-12 | DI.CT_ITS ---
Exam(s) CT HEAD WO EXAM: CT HEAD WO CLINICAL HISTORY: SUBDURAL HEMATOMA,S06.5XAA. TECHNIQUE: Imaging Protocol: Axial computed tomography images with coronal and sagittal reformatted images were created and reviewed COMPARISON: CT CT HEAD CERVICAL SPINE WO from 05/02/2025 FINDINGS: Ventricles and Extra axial spaces: Similar compression of the right lateral ventricle. Hemorrhage: The previously noted right subdural hematoma is mostly low density on the current exam. There is some high density blood seen in the left frontal region more superiorly. The thickness of the subdural collection is increased to 10 millimeters compared with 8 on the previous exam. There is slight increase in amount of midline shift, now 10 millimeters, compared with 8. A tiny amount of new subdural hemorrhage is seen along the right posterior falx and right tentorium. No intraparenchymal hemorrhage. Cerebral parenchyma: No evidence of acute infarct or mass. Midline shift: None. Brainstem/Cerebellum: Normal. Bones: No skull or facial fractures. Visualized Paranasal sinuses:Clear. Mastoids: Clear. Soft Tissues: Unremarkable. ORBITS: Unremarkable. PITUITARY: Not enlarged. IMPRESSION: Acute on subacute right subdural hematoma now measuring 10 millimeters in thickness compared to 8 millimeters on the prior exam. Increasing midline shift to 10 millimeters. Findings called to Citlali Calles, referring provider, 3:05 p.m. 05/12/2025. RADIATION DOSE DELIVERED: 854.09mGy.cm Total DLP DATA REPOSITORY: All CT scans at this facility are submitted to the National Radiology Data Registry (NRDR) Dose Index Registry (DIR) with the [employer] (ACR). RADIATION OPTIMIZATION: All CT scans at this facility use at least one of these dose optimization techniques: automated exposure control; mA and/or kV adjustment per patient size (includes targeted exams where dose is matched to clinical indication); or iterative reconstruction.
== END ==
LOC: DI 13:14
PROVIDERS: PCP Nurse Practitioner Family; Visit Provider Nurse Practitioner Family
DX: S06.5XAA Traumatic subdural hemorrhage with loss of consciousness status unknown, initial encounter (principal)
CPT/HCPCS: 70450

== ENCOUNTER 2025-05-17 11:54 | Emergency (ER) | payer MEDICARE, BC, SELFPAY ==
[2025-05-17] VITALS (42 sets, daily range): BP systolic 129–195; BP diastolic 64–97; PULSE 56–81; RESP 12–23; TEMP 36.2; O2SAT 95–99
--- NOTE | 2025-05-17 12:00 | RT.EKG_ITS ---
APPROVED REPORT Exam: Resting ECG Reason for Exam: Confusion Patient Location: E HR:59 bpm ECG Measurements Heart Rate 59 AXIS NV 153 P 69 QRSd 78 QRS 66 QT 433 T 17 QTc 430 Conclusion Sinus bradycardia, rate 59 No interval abnormalities No STEMI T wave flattening III, aVF, present on prior
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
[2025-05-17 12:14] LABS: Abs Immature Grans 0.07 10^3/uL (0.0-0.06); HCT 39.5 % (36.0-46.0); HGB 13.5 g/dL (11.2-15.7); Immature Grans % 0.5 %; MCH 30.3 pg (27.0-33.0); MCHC 34.2 % (32.0-36.0); MCV 89 fL (80-95); MPV 8.7 fL (8.0-11.0); Platelet Count 348 10^3/uL (130-400); RBC 4.45 10^6/uL (3.93-5.22); RDW 12.0 % (11.7-14.6); RDW-SD 39.3 fL; WBC 13.23 10^3/uL (4.4-10.8)
--- NOTE | 2025-05-17 12:14 | W.ED.GENAD ---
Discharge Plan Disposition Patient Disposition: Transfer-Acute Inpatient Care Specific Acute Inpt Facility: [facility] Condition: Serious Discharge Details Clinical Impression: Subacute subdural hematoma, Confusion Primary Care Provider: Citlali Calles ED Provider: Grace Gillespie Home Meds and New Rx's Prescriptions: No Action paroxetine HCl 20 mg tablet 10 mg PO DAILY estradiol 10 mcg tablet 10 mcg vaginal .twice weekly ibuprofen 600 mg tablet 600 mg PO Q6H PRN (Reason: pain and inflammation) Qty: 60 0RF xljccsqhpo-kolzjtxanysrr-lzne 50-325-40 mg tablet 1 tab PO Q4H PRN Patient Comments: TAKE ONE TABLET BY MOUTH EVERY 4 HOURS NEEDED FOR PAIN- last taken last night 05/16/25 HPI General Mode of arrival: wheelchair. Date/Time Provider Initiated Documentation: 05/17/25 11:55. Limitations to Documentation: no limitations and altered mental status. Information obtained by: patient, family, RN notes reviewed and old records reviewed. HPI Narrative: 64-year-old female presents to the ER accompanied by her with a chief complaint of continued headache since being diagnosed with a subdural hematoma approximately 15 days ago. He also notes that confusion began yesterday and she woke up in the middle of night and fell hitting her head again. He reports that she is very wobbly with ambulation. She is complaining of a left-sided headache. Denies any blurry vision or double vision however she does squint when she looks at me, no pronator drift or numbness or tingling reported. However she does have more weakness on her right lower extremity. [employer] are equal bilaterally in the upper extremities. Patient recently just started Fioricet on Thursday which did not improve her headache. Related Data Home Medications ?Medication ?Instructions ?Recorded ?Confirmed ibuprofen 600 mg tablet 600 mg PO Q6H PRN pain and 04/19/21 05/17/25 inflammation #60 tabs estradiol 10 mcg vaginal tablet 10 mcg vaginal .twice weekly 05/30/24 05/17/25 paroxetine HCl 20 mg tablet 10 mg PO DAILY 05/30/24 05/17/25 tmlehpvaol-jmuvhgimmqfsa-dfweidmo 1 tab PO Q4H PRN 05/17/25 05/17/25 50 mg-325 mg-40 mg tablet Previous Rx's ?Medication ?Instructions ?Recorded ibuprofen 600 mg tablet 600 mg PO Q6H PRN pain and 04/19/21 inflammation #60 tabs Allergies Allergy/AdvReac Type Severity Reaction Status Date / Time Sulfa (Sulfonamide Allergy Severe Other (See Unverified 05/02/25 18:45 Antibiotics) Comment) General Stated Complaint: AMS/LOC JORGE: 3 Review of Systems All systems reviewed & are unremarkable except as noted in HPI and below Constitutional Constitutional: Reports as per HPI, Reports frequent falls, Reports headache(s) and Reports weakness ENT Ears, Nose, Mouth, and Throat: Reports headache(s) and Reports disequilibrium Cardiovascular Cardiovascular: Denies chest pain and Denies dyspnea Respiratory Respiratory: Denies dyspnea Gastrointestinal Gastrointestinal: Denies abdominal pain, Denies diarrhea, Denies nausea and Denies vomiting Musculoskeletal Musculoskeletal: Reports abnormal gait Neurologic Neurologic: Reports abnormal gait, Reports confusion, Reports frequent falls, Reports headache(s), Reports memory loss, Reports disequilibrium and Reports weakness Psychiatric Psychiatric: Reports confusion and Reports memory loss Exam Narrative Exam Narrative: Constitutional: Awake to verbal, appears confused, appears stated age. Normal body habitus. Head: Normocephalic, no trauma. Eyes: Pupils PERRL, Red reflex noted, EOM's intact. Eyelids symmetrical without lesions, discharge, or swelling. ENT: Bilateral TM's WNL, External ear normal to inspection, no mastoid TTP, swelling, or erythema, Nasal turbinates WNL, no nasal discharge. Normal dentition, Posterior pharynx WNL, no exudate. Chest: RRR, Normal S1, S2, distal pulses intact. Resp: Lungs clear to auscultation bilaterally, no wheezes, rales, or rhonchi. Abdomen: Soft, non-distended, Normoactive bowel sounds all 4 quads. Musculoskeletal: Unable to assess gait however reported from previous visit that she is having a shuffling leaning to the left side and frequent falls,, Skin: No suspicious rashes or lesions. Capillary refill less than 2 sec. Neurologic: No facial droop, does have some right lower extremity weakness, no pronator drift. [employer] Unloader are equal bilaterally. Hematologic/Lymphatic: No ecchymosis, no lymphadenopathy. Course Vital Signs Vital signs: Vital Signs Temperature 36.2 C L 05/17/25 11:58 Pulse 68 05/17/25 11:58 Respiratory Rate 15 05/17/25 11:58 Blood Pressure 195/97 H 05/17/25 11:58 Pulse Oximetry 98 05/17/25 11:58 Temperature 36.2 C L 05/17/25 12:05 Temperature Source Tympanic 05/17/25 12:05 Pulse 68 05/17/25 12:05 Respiratory Rate 15 05/17/25 12:05 Blood Pressure 195/97 H 05/17/25 12:05 Blood Pressure Position Sitting 05/17/25 12:05 Pulse Oximetry 98 05/17/25 12:05 Oxygen Delivery Method Room Air 05/17/25 12:05 Oxygen Flow Rate 0 05/17/25 12:05 Pain Level 3 05/17/25 12:05 Medical Decision Making 64-year-old female presents to the ER accompanied by her with a chief complaint of continued headache since being diagnosed with a subdural hematoma approximately 15 days ago. He also notes that confusion began yesterday and she woke up in the middle of night and fell hitting her head again. He reports that she is very wobbly with ambulation. She is complaining of a left-sided headache. Denies any blurry vision or double vision however she does squint when she looks at me, no pronator drift or numbness or tingling reported. However she does have more weakness on her right lower extremity. [employer] Unloader are equal bilaterally in the upper extremities. Patient recently just started Fioricet on Thursday which did not improve her headache. Workup ordered including CT head, CBC CMP troponin, EKG and urinalysis. Will also consider teleneuro consult. White blood cell count is 13.23, sodium 132 potassium 3.8 chloride 96 glucose 118 alk phos is 117. EKG shows sinus bradycardia with flattened T waves. CT shows an interval increase in size of the right subdural hematoma from 1.5 to 1 cm on the prior examination. There are also areas of hyperdensity within the hematoma suggesting more acute hemorrhage. There is also an increase in the size of the last midline shift. Will call [facility] for transfer request. 1308: [facility] transfer Center called to speak with Neuro Surgery for transfer request. 1326: Spoke with Dr. Light with neurosurgery at [facility] she recommends transfer ED to ED for worsening subdural hematoma, she recommends a gram of Keppra which was ordered, hypertonic 3% saline, and blood pressure control to keep systolic blood pressure less than 160. 10 mg of hydralazine IV was ordered. Will arrange for transportation. Discussed plan of care with patient and who verbalized understanding and are in agreement with the plan. 1343: Spoke with Dr. Hart in the emergency department regarding patient case in detail she agrees to accept patient for transfer. This text was generated using [employer] dictation system, please disregard any oddities of phrase or misspellings. Medical Records Medical records reviewed: Yes I reviewed the patient's medical records. Imaging Data Radiologic Study: Imaging: CT Scan Radiologist's impression: FINDINGS: Ventricles and Extra axial spaces: Please see the section below. Hemorrhage: There has been an interval increase in size of the right subdural hematoma which now has a thickness of up to 1.5 cm compared to 1.0 cm on the prior examination. The hematoma is predominantly hypodense. There are, however, areas of hyperdensity within the hematoma suggesting more acute hemorrhage. Cerebral parenchyma: There is resultant effacement of the adjacent sulci and the right lateral ventricle. There is also effacement of the right temporal and occipital horns. There is no evidence to suggest an acute territorial infarct at this time. Midline shift: There is also been increase in the right to left midline shift which now measures 1.5 cm compared to 1.0 cm on the prior examination. Brainstem/Cerebellum: Normal. Calvarium: Normal. Visualized Paranasal sinuses/Mastoids: Clear. Soft Tissues: Unremarkable. IMPRESSION: Interval increase in size of the right subdural hematoma which shows evidence of mild acute hemorrhage. There is also increase in the midline shift as result of the hematoma. Lab Data Lab results reviewed: Yes I reviewed the patient's lab results. Labs: Laboratory Tests Range/Units 05/17/25 12:08 WBC (4.4-10.8) 10^3/uL 13.23 H RBC (3.93-5.22) 10^6/uL 4.45 Hgb (11.2-15.7) g/dL 13.5 Hct (36.0-46.0) % 39.5 MCV (80-95) fL 89 MCH (27.0-33.0) pg 30.3 MCHC (32.0-36.0) % 34.2 RDW (11.7-14.6) % 12.0 Plt Count (130-400) 10^3/uL 348 MPV (8.0-11.0) fL 8.7 Immature Gran % % 0.5 Neutrophils % % 83.7 Lymphocytes % % 10.1 Monocytes % % 4.2 Eosinophils % % 1.1 Basophils % % 0.4 Nucleated RBC % (0.0-0.3) % 0.0 Absolute Neutrophils (1.2-6.7) 10^3/uL 11.07 H Absolute Lymphocytes (1.2-3.4) 10^3/uL 1.34 Absolute Monocytes (0.1-0.8) 10^3/uL 0.56 Absolute Eosinophils (0.0-0.7) 10^3/uL 0.15 Absolute Basophils (0.0-0.2) 10^3/uL 0.05 RBC Morphology Normal PT (9.1-11.1) sec 9.9 INR (0.9-1.1) 1.0 APTT (20.6-30.2) sec 28.6 Sodium (136-145) mmol/L 132 L Potassium (3.5-5.1) mmol/L 3.8 Chloride (98-107) mmol/L 96 L Carbon Dioxide (20.0-31.0) mmol/L 25.8 Anion Gap (3-11) mmol/L 9.8 BUN (9-23) mg/dL 14 Creatinine (0.55-1.02) mg/dL 0.89 Est GFR (CKD-EPI 2020) (mL/min/1.73m2) 63.37 Glucose (74-106) mg/dL 118 H Calcium (8.3-10.6) mg/dL 10.0 Total Bilirubin (0.2-1.2) mg/dL 0.50 AST (<34) U/L 24 ALT (10-49) U/L 19 Alkaline Phosphatase (46-116) U/L 117 H Troponin I (<35) ng/L 4 Total Protein (5.7-8.2) g/dL 8.9 H Albumin (3.2-5.0) g/dL 5.1 H PFSH All Active Problems (Updated 05/17/25 @ 13:29 by Grace Gillespie NP) Confusion (Acute) Subacute subdural hematoma (Acute) Skin lesion (Acute) Disorder of the skin and subcutaneous tissue, unspecified (Acute) Hallux limitus of left foot (Acute) Medical History (Updated 05/17/25 @ 13:29 by Grace Gillespie NP) Positive colorectal cancer screening using Cologuard test Dysuria Microscopic hematuria Injury of left wrist Noninflammatory disorder of vagina Menopause present Dizziness and giddiness Neck pain Spinal stenosis in cervical region Cervical spondylosis without myelopathy Ankle pain Major depression, single episode Hyponatremia Depression IBS (irritable bowel syndrome) Vaginal dryness Finger pain, left Surgical History (Updated 02/06/25 @ 09:29 by Carina Vela) Hx of colonoscopy with polypectomy (~02/03/25) History of bunionectomy 2020 Family History (Updated 05/30/24 @ 10:25 by Gifty Cumimngs RN) Maternal Grandmother Breast cancer Social History Smoking/Tobacco Use Status: Never Smoking risk assessment performed?: Yes Alcohol Intake: current Alcohol Intake frequency: 0-2 drinks per day Alcohol type: wine Drug use: Never Substance use type: does not use Housing: house Do you feel safe at home: Yes Do you feel safe in your relationship?: Yes PAWSS Have you Been Recently Intoxicated or Drunk Within the Last 30 days?: No Have you Ever Experienced Previous Episodes of Alcohol Withdrawal?: No Have you ever Experienced Withdrawal Seizures?: No Have you ever Experienced Delirium Tremens(DT)s?: No Have you ever undergone Alcohol Rehabilitation Treatment (i.e, inpt ot outpatient treatment programs)?: No Have you ever Experienced Blackouts?: No Have you ever Combined Alcohol with other Downers within the last 90 days?: No Have you ever Combined Alcohol with any other Substance of Abuse during the last 90 days?: No Result: 0
[2025-05-17 12:26] LABS: RBC Morphology Normal
[2025-05-17 12:29] LABS: INR 1.0 (0.9-1.1); PTT Activated 28.6 sec (20.6-30.2); Prothrombin Time 9.9 sec (9.1-11.1)
[2025-05-17 12:32] LABS: Troponin I 4 ng/L (<35)
[2025-05-17 12:34] LABS: ALT 19 U/L (10-49); AST 24 U/L (<34); Albumin 5.1 g/dL (3.2-5.0); Alkaline Phosphatase 117 U/L (46-116); Anion Gap 9.8 mmol/L (3-11); BUN 14 mg/dL (9-23); Bilirubin, Total 0.50 mg/dL (0.2-1.2); CO2 25.8 mmol/L (20.0-31.0); Calcium 10.0 mg/dL (8.3-10.6); Chloride 96 mmol/L (98-107); Glucose 118 mg/dL (74-106); Potassium 3.8 mmol/L (3.5-5.1); Sodium 132 mmol/L (136-145); Total Protein 8.9 g/dL (5.7-8.2)
[2025-05-17] MEDS: levETIRAcetam 1,000 MG in Normal Saline 100 ML 400 MG IVPB (14:03)
[2025-05-17 14:21] LABS: Troponin I 4 ng/L (<35)
[2025-05-17] MEDS: SODIUM CHLORIDE 3% 150 ML 450 ML IV INF (14:26)
== END 2025-05-17 15:10 | disposition short-term general hospital (02) ==
PROVIDERS: Emergency Provider Registered Nurse Emergency; PCP Nurse Practitioner Family
DX: S06.5XAA Traumatic subdural hemorrhage with loss of consciousness status unknown, initial encounter (principal); R41.0 Disorientation, unspecified; R51.9 Headache, unspecified; W19.XXXA Unspecified fall, initial encounter
CPT/HCPCS: 36415; 80053; 93005; 96365; 99285; 70450; 84484; 85025; 85610; 85730; 93010; J0360; J1953